=== PATIENT | female | born 1950 | race Caucasian/White ===

== ENCOUNTER → 2020-07-21 07:51 | Outpatient (REF) | payer MEDICARE, SELFPAY ==
--- NOTE | 2020-07-21 | CA_ITS ---
Acquisition Time: 2020-07-21 08:12:11 Total Exercise Time: 00:06:00 Test Indications: Dyspnea Medications: LOSARTAN Protocol: ARAM Max HR: 141 BPM 94% of Pred: 150 BPM Max BP: 144/086 mmHG Max Work Load: 7.0 METS PT EXERCISED ON STD ARAM PROTOCOL FOR 6 MIN THRU SYTAGE 2. MAX HR 141-94%MAX. SOME SOB. NO CP. OCC PVC'S. NML BP RESPONSE, NO ISCHEMIC CHANGES ON EKG. CLINICALLY AND ELEC NEG. Referred By: Rogelio Hancock Overread By: ARTUR HANCOCK MD
[2020-07-21 09:41] LABS: MANUAL DIFF FLAG NO
[2020-07-21 09:53] LABS: Basophils Absolute Auto 0.1 X10*3/uL (0.0-0.2); Basophils Percent Auto 1.1 % (0-2); Eosinophils Absolute Auto 0.6 X10*3/uL (0.0-0.4); Eosinophils Percent Auto 8.8 % (0-4); Hematocrit 45.7 % (37-47); Hemoglobin 15.3 g/dl (12.0-16.0); Imm Gran Abs Auto 0.01 X10*3/uL (0.00-0.03); Imm Gran Pct Auto 0.2 % (0.0-0.4); Lymphocytes Absolute Auto 2.1 X10*3/uL (1.2-4.9); Lymphocytes Percent Auto 32.2 % (20-40); Mean Corpuscular HGB Conc 33.5 g/dl (31.0-35.0); Mean Corpuscular Hemoglobin 31.5 pg (27.0-33.0); Mean Corpuscular Volume 94.2 fL (80-98); Mean Platelet Volume 9.7 fL (9.4-12.3); Monocytes Absolute Auto 0.6 X10*3/uL (0.1-1.2); Monocytes Percent Auto 9.8 % (2-11); Neutrophils Absolute Auto 3.1 X10*3/uL (2.0-8.3); Neutrophils Percent Auto 47.9 % (45-73); Platelet Count 278 X10*3/uL (160-400); Red Blood Count 4.85 X10*6/uL (4.20-5.50); Red Cell Distribution Width 12.8 % (11.0-16.0); White Blood Count 6.5 X10*3/uL (4.8-10.8)
[2020-07-21 10:16] LABS: Glucose Urine UA NEG (NEG); Leukocyte Esterase Urine 1+ (NEG); Nitrite Urine NEG (NEG); PH 5.5 (5.0-8.0); Specific Gravity - Urine >= 1.030 (1.005-1.025); Urine Blood TRACE (NEG); Urine Ketones NEG (NEG); Urine Protein NEG (NEG-TRACE)
[2020-07-21 10:19] LABS: Alanine Aminotransferase 13 U/L (0-31); Albumin Level 4.2 g/dL (3.5-5.0); Alkaline Phosphatase 81 U/L (39-117); Anion Gap 14 (12-20); Aspartate Amino Transferase 16 U/L (5-31); Bilirubin Total 0.6 mg/dL (0.0-1.0); Blood Urea Nitrogen 16 mg/dL (9-16); Carbon Dioxide 25 mmol/L (22-29); Chloride 107 mmol/L (96-108); Cholesterol 244 mg/dL; Estimated Glomerular Filt Rate > 60; Glucose Fasting 94 mg/dL (60-99); HDL Cholesterol 57 mg/dL; LDL Cholesterol Calculated 164 mg/dl; Potassium 4.6 mmol/l (3.3-5.1); Sodium 141 mmol/L (135-145); Total Protein 6.6 g/dL (6.5-8.0); Triglycerides 115 mg/dL
[2020-07-21 10:27] LABS: Appearance Urine HAZY; Color Urine YELLOW
[2020-07-21 10:38] LABS: Vitamin D 25-OH Total 22.1 ng/mL (>30)
[2020-07-21 11:17] LABS: Bacteria Urine TRACE /LPF; RBC Urine 0-2 /HPF (0); Squamous Epithelial Cell Urine 2+ /LPF; WBC Clumps Urine NOTED
== END ==
LOC: HO.CARD 07:51
PROVIDERS: PCP Internal Medicine; Visit Provider Internal Medicine
DX: R06.09 Other forms of dyspnea (principal)
CPT/HCPCS: 36415; 80053; 80061; 81001; 81003; 82306; 85025; 93017

== ENCOUNTER → 2020-07-24 14:00 | Outpatient (REF) | payer MEDICARE, SELFPAY ==
--- NOTE | 2020-07-24 14:10 | CA_ITS ---
Transthoracic Echocardiogram Patient (Last, First, Middle): Verónica Salinas L Gender: Female Date of : 1950 Age: 70 Procedure Date: 07/24/2020 Procedure Type: Transthoracic Echocardiogram Location: OP Height: 165.1 cm Weight: 68.95 kg BSA: 1.76 m2 Heart Rate: bpm BP: 111 / 78 mmHg Security Guard Dispatcher: ELLI Referring MD: Rogelio Garcia MD Weaver Apprentice: Rishi Ravi MD Symptoms: R06.09 OTHER FORMS OF DYSPNEA I49.3 VENTRICULAR PREMATURE DE Study Quality: Fair ECG Rhythm: Sinus Conclusions: - 1. Normal LV systolic function with impaired relaxation filling pattern 2. Normal cardiac valvular Doppler 3. Normal RV systolic pressure 4. No pericardial effusion Findings Left Ventricle Normal left ventricular size, thickness, and systolic function. The visually estimated ejection fraction is between 60-65%. Spectral Doppler is indicative of an impaired relaxation filling pattern. Right Ventricle Normal right ventricular cavity size and systolic function. Atria Both atria are normal in size. There is no evidence of interatrial shunt. Aortic Valve There is mild calcification of the aortic valve. There is no aortic valve stenosis. There is no aortic valve regurgitation. Mitral Valve Likely normal mitral valve structure and function. There is trace mitral valve regurgitation. There is no mitral valve stenosis. Pulmonic Valve The pulmonic valve was not well visualized. Tricuspid Valve Normal tricuspid valve structure. There is trace tricuspid valve regurgitation. The right ventricular systolic pressure is 15 mmHg. Normal right atrial pressure. There is no evidence of pulmonary hypertension. Great Vessels All visible segments of the aorta are normal in size. The pulmonary artery was not well visualized. Venous The inferior vena cava is normal in size and collapses greater than 50% with inspiration. Pericardium/Pleural There is no evidence of pericardial effusion. Prior Study Comparison No prior study available for comparison. Measurements 2D Linear Measurements IVSd: 0.97 0.6-0.9/0.6-1.0 cm LVIDd: 3.47 3.9-5.3/4.2-5.9 cm LVIDd Index: 1.97 2.4-3.2/2.2-3.1 cm/m2 LVIDs: 2.37 2.0-3.6 cm LVPWd: 1.03 0.7-1.1 cm Ao Root: 3.20 2.1-3.5 cm LA Diam: 3.20 2.7-3.8/3.0-4.0 cm LAIDs Index: 1.82 1.5-2.3 cm/m2 LV Mass: 126.95 67-162/88-224 g LV Mass Index: 72.13 43-95/49-115 g/m2 LVOT Diam: 2.20 3.0+(-)1.3 cm 2D Systolic Function EF 4C: 74.90 >55% Mitral Valve MV Pk E: 0.83 MV PK A: 0.98 MV Decel Time: 239.00 E/A: 0.80 E'Lateral: 8.41 E'Medial: 6.38 E/E' Med: 13.00 E/E' Lat: 9.90 PHT: 70.00 MVA PHT: 3.14 Decel Randolph: 3.46 Aortic Valve AoV Pk Ok: 1.19 AoV Pk Grad: 6.00 LVOT LVOT Pk Ok: 1.13 LVOT Mn Ok: 0.73 LVOT VTI: 0.22 LVOT Pk Grad: 5.00 LVOT Mn Grad: 3.00 LVOT Diam: 2.20 LVOT Area: 3.80 Diastolic Function MV Pk E: 0.83 MV Pk A: 0.98 E/A: 0.80 E'Medial: 6.38 E/E' Med: 13.00 E' Laterial: 8.41 E/E' Lat: 9.90 Tricuspid Valve TR Pk Ok: 1.75 TR Pk Grad: 12.00 RA Press: 3.00 RVSP: 15.00 Great Vessels Aorta Ao Root-2D: 3.20 2.0-3.7 cm Ao Asc: 3.10 2.1-3.4 cm Ao Arch: 2.30 Updated in Other Vendor System with Status of Final Rishi Ravi MD electronically signed on 07/25/2020 9:50:08 AM with status of Final
== END ==
LOC: HO.CARD 14:00
PROVIDERS: PCP Internal Medicine; Visit Provider Internal Medicine
DX: R06.09 Other forms of dyspnea (principal); I49.3 Ventricular premature depolarization
CPT/HCPCS: 93306

== ENCOUNTER 2020-08-28 11:42 | Outpatient (REF) | payer MEDICARE, SELFPAY ==
--- NOTE | 2020-08-28 | MM_ITS ---
EXAMINATION: MM SCREENING DIGITAL BREAST TOMOSYNTHESIS, BILATERAL CLINICAL INFORMATION: Screening. Asymptomatic. The lifetime risk of breast cancer based on the Tyrer-Cuzick Model is 5.1%. COMPARISON: Mammography: March 03, 2018 and studies dating back to June 09, 2012 TECHNIQUE: Digital breast tomosynthesis is performed in both the craniocaudal and mediolateral oblique views along with computer-aided detection (CAD). Synthesized 2D images are generated from the tomosynthesis. FINDINGS: The breasts are heterogeneously dense, which may obscure small masses (ACR BI-RADS breast composition Category c). Within the superior lateral aspect of the left breast approximately is a circumscribed density without spiculation measuring approximately 6 mm in diameter which spot compression view and ultrasound is recommended. There is also noted to be a density within the superior aspect of the left breast which appears to be stable and may represent a skin lesion. This appears to be along the medial aspect of the breast. No suspicious right breast findings identified. MM/MM tomosynthesis screening BI IMPRESSION: Circumscribed density upper outer aspect of the left breast for further evaluation as described. ASSESSMENT: BI-RADS 0: Incomplete - Need Additional Imaging Evaluation RECOMMENDATION: 1. Additional views of the left breast 2. Targeted ultrasound if warranted after review of the additional views. 3. Radiology department staff will contact the patient for additional imaging. This patient's information was entered into a reminder system with a target due date for their next mammogram.
== END 2020-08-28 11:43 | disposition home or self-care (01) ==
LOC: HO.MAMMO 11:42
PROVIDERS: Visit Provider Internal Medicine
DX: Z12.31 Encounter for screening mammogram for malignant neoplasm of breast (principal)
CPT/HCPCS: 77063; 77067

== ENCOUNTER 2020-09-25 08:56 | Outpatient (REF) | payer MEDICARE, SELFPAY ==
--- NOTE | 2020-09-25 | MM_ITS ---
EXAMINATION: MM DIAGNOSTIC DIGITAL BREAST TOMOSYNTHESIS, LEFT US DIAGNOSTIC ULTRASOUND BREAST, LEFT CLINICAL INFORMATION: Recall from screening for new nodule mid 3:00 left breast under 1 cm. COMPARISON: Mammography: 08/28/2020, 03/03/2018 TECHNIQUE: Digital breast tomosynthesis is performed. 2D images are generated from the tomosynthesis. The following views are obtained: Spot CC, spot MLO. Ultrasound left breast is targeted to the outer quadrant. Grayscale imaging and color Doppler are performed without and with harmonics. FINDINGS: The breasts are heterogeneously dense, which may obscure small masses (ACR BI-RADS breast composition Category c). Breast tissue composition borders on average fibroglandular. The additional views confirm a circumscribed nodule at the area of interest. No spiculation or irregular margin. Ultrasound left breast demonstrates a simple cyst 2:30 position 4 cm from nipple measuring 6 0.7 x 0.4 cm. This corresponds to the finding on mammography. Results are discussed with the patient at time of visit. MM/MM tomosynthesis diagnostic LT IMPRESSION: Simple cyst upper outer left breast corresponding to finding on recent screening mammography measuring 0.7 cm. ASSESSMENT: BI-RADS 2: Benign RECOMMENDATION: Routine annual mammography screening. This patient's information was entered into a reminder system with a target due date for their next mammogram.
== END 2020-09-25 08:57 | disposition home or self-care (01) ==
LOC: HO.MAMMO 08:56
PROVIDERS: PCP Internal Medicine; Visit Provider Internal Medicine
DX: N63.21 Unspecified lump in the left breast, upper outer quadrant (principal)
CPT/HCPCS: 76642; 77061; 77065

== ENCOUNTER 2021-10-14 11:42 | Outpatient (REF) | payer MEDICARE, SELFPAY ==
--- NOTE | ~2021-10-14 | MM_ITS ---
EXAMINATION: MM SCREENING DIGITAL BREAST TOMOSYNTHESIS, BILATERAL CLINICAL INFORMATION: Screening. Asymptomatic. The lifetime risk of breast cancer based on the Tyrer-Cuzick Model is 4%. COMPARISON: Mammography: 09/25/2020, 08/28/2020, 03/03/2018, 12/24/2016; targeted left breast ultrasound 09/25/2020 TECHNIQUE: Digital breast tomosynthesis is performed in both the craniocaudal and mediolateral oblique views along with computer-aided detection (CAD). Synthesized 2D images are generated from the tomosynthesis. FINDINGS: There are scattered areas of fibroglandular density (ACR BI-RADS breast composition Category b). There are no significant masses, abnormal calcifications, or other abnormalities. Nodule mid outer left breast has substantially decreased since prior imaging 2019. No interval mass or architectural abnormality. MM/MM tomosynthesis screening BI IMPRESSION: No mammographic evidence of malignancy. ASSESSMENT: BI-RADS 2: Benign RECOMMENDATION: Routine annual mammography screening. This patient's information was entered into a reminder system with a target due date for their next mammogram.
== END 2021-10-14 11:43 | disposition home or self-care (01) ==
LOC: HO.MAMMO 11:42
PROVIDERS: Visit Provider Internal Medicine
DX: Z12.31 Encounter for screening mammogram for malignant neoplasm of breast (principal)
CPT/HCPCS: 77063; 77067

== ENCOUNTER 2022-02-01 08:47 | Outpatient (REF) | payer MEDICARE, SELFPAY ==
[2022-02-01 10:30] LABS: MANUAL DIFF FLAG NO
[2022-02-01 10:33] LABS: Basophils Absolute Auto 0.1 X10*3/uL (0.0-0.2); Basophils Percent Auto 0.8 % (0-2); Eosinophils Absolute Auto 0.5 X10*3/uL (0.0-0.4); Eosinophils Percent Auto 7.6 % (0-4); Hematocrit 44.9 % (37.0-47.0); Hemoglobin 14.9 g/dl (12.0-16.0); Imm Gran Abs Auto 0.01 X10*3/uL (0.00-0.03); Imm Gran Pct Auto 0.2 % (0.0-0.4); Lymphocytes Absolute Auto 2.3 X10*3/uL (1.2-4.9); Lymphocytes Percent Auto 37.2 % (20-40); Mean Corpuscular HGB Conc 33.2 g/dl (31.0-35.0); Mean Corpuscular Hemoglobin 30.9 pg (27.0-33.0); Mean Corpuscular Volume 93.2 fL (80.0-98.0); Mean Platelet Volume 9.7 fL (9.4-12.3); Monocytes Absolute Auto 0.6 X10*3/uL (0.1-1.2); Monocytes Percent Auto 9.7 % (2-11); Neutrophils Absolute Auto 2.8 x10*3/uL (2.0-8.3); Neutrophils Percent Auto 44.5 % (45-73); Platelet Count 254 X10*3/uL (160-400); Red Blood Count 4.82 X10*6/uL (4.20-5.50); Red Cell Distribution Width 13.2 % (11.0-16.0); White Blood Count 6.2 X10*3/uL (4.8-10.8)
[2022-02-01 11:04] LABS: Alanine Aminotransferase 24 U/L (0-31); Albumin Level 3.8 g/dL (3.5-5.0); Alkaline Phosphatase 79 U/L (39-117); Anion Gap 13 (12-20); Aspartate Amino Transferase 22 U/L (5-31); Bilirubin Total 0.9 mg/dL (0.0-1.0); Blood Urea Nitrogen 14 mg/dL (9-16); Calcium 9.3 mg/dL (8.4-10.2); Carbon Dioxide 23 mmol/L (22-29); Chloride 109 mmol/L (96-108); Cholesterol 215 mg/dL; Estimated Glomerular Filt Rate > 60; Glucose Fasting 89 mg/dL (60-99); HDL Cholesterol 54 mg/dL; LDL Cholesterol Calculated 136 mg/dl; Potassium 4.4 mmol/L (3.3-5.1); Sodium 141 mmol/L (135-145); Total Protein 6.5 g/dL (6.5-8.0); Triglycerides 125 mg/dL
== END 2022-02-01 08:48 | disposition home or self-care (01) ==
LOC: HO.10HDL 08:47
PROVIDERS: Visit Provider Internal Medicine
DX: I10 Essential (primary) hypertension (principal); E78.00 Pure hypercholesterolemia, unspecified; M81.0 Age-related osteoporosis without current pathological fracture
CPT/HCPCS: 36415; 80053; 80061; 82306; 85025

== ENCOUNTER 2023-07-07 08:29 | Outpatient (REF) | payer MEDICARE, SELFPAY ==
[2023-07-07 10:42] LABS: MANUAL DIFF FLAG NO
[2023-07-07 10:55] LABS: Basophils Absolute Auto 0.1 X10*3/uL (0.0-0.2); Eosinophils Absolute Auto 0.7 X10*3/uL (0.0-0.4); Eosinophils Percent Auto 9.9 % (0-4); Hematocrit 44.4 % (37.0-47.0); Hemoglobin 14.9 g/dl (12.0-16.0); Imm Gran Abs Auto 0.01 X10*3/uL (0.00-0.03); Imm Gran Pct Auto 0.1 % (0.0-0.4); Lymphocytes Absolute Auto 2.6 X10*3/uL (1.2-4.9); Lymphocytes Percent Auto 36.7 % (20-40); Mean Corpuscular HGB Conc 33.6 g/dl (31.0-35.0); Mean Corpuscular Hemoglobin 30.7 pg (27.0-33.0); Mean Corpuscular Volume 91.4 fL (80.0-98.0); Mean Platelet Volume 9.6 fL (9.4-12.3); Monocytes Absolute Auto 0.7 X10*3/uL (0.1-1.2); Monocytes Percent Auto 10.3 % (2-11); Platelet Count 275 X10*3/uL (160-400); Red Blood Count 4.86 X10*6/uL (4.20-5.50); Red Cell Distribution Width 12.9 % (11.0-16.0); White Blood Count 7.2 X10*3/uL (4.8-10.8)
[2023-07-07 11:22] LABS: Alanine Aminotransferase 12 U/L (0-31); Albumin Level 3.9 g/dL (3.5-5.0); Alkaline Phosphatase 77 U/L (39-117); Anion Gap 13 (12-20); Aspartate Amino Transferase 17 U/L (5-31); Bilirubin Total 0.6 mg/dL (0.0-1.0); Blood Urea Nitrogen 14 mg/dL (9-16); Calcium 9.7 mg/dL (8.4-10.2); Carbon Dioxide 24 mmol/L (22-29); Chloride 109 mmol/L (96-108); Cholesterol 198 mg/dL (<200); Estimated Glomerular Filt Rate > 60; Glucose Random 91 mg/dL (60-115); HDL Cholesterol 56 mg/dL (>40); LDL Cholesterol Calculated 119 mg/dL (<100); Sodium 142 mmol/L (135-145); Total Protein 6.8 g/dL (6.5-8.0); Triglycerides 115 mg/dL (<150)
[2023-07-07 11:31] LABS: Vitamin D 25-OH Total 47.6 ng/mL (>30)
== END 2023-07-07 08:30 | disposition home or self-care (01) ==
LOC: HO.10HDL 08:29
PROVIDERS: Visit Provider Internal Medicine
DX: I10 Essential (primary) hypertension (principal); E78.00 Pure hypercholesterolemia, unspecified; M81.0 Age-related osteoporosis without current pathological fracture
CPT/HCPCS: 36415; 80053; 80061; 82306; 85025

== ENCOUNTER 2023-07-20 12:32 | Outpatient (REF) | payer MEDICARE, SELFPAY ==
--- NOTE | ~2023-07-20 | MM_ITS ---
EXAMINATION: BONE DENSITOMETRY CLINICAL INDICATION: Menopausal state. COMPARISON: Previous BD dated 06/09/2012 and baseline BD dated 06/17/2008. TECHNIQUE: Using a [employer] DXA System (software version: 13.1) manufactured by [employer], dual-energy x-ray absorptiometry was performed of the lumbar spine and left hip. The images are of good technical quality. Summary results are attached. FINDINGS: LEFT FEMUR, NECK: Current: BMD 0.644 g/cm2, Z-score -1.1, T-score -2.8, osteoporosis. Prior: BMD 0.677 g/cm2. Baseline: BMD 0.691 g/cm2. LEFT FEMUR, TOTAL: Current: BMD 0.753 g/cm2, Z-score -0.5, T-score -2.0, osteopenia, 1.6% increase from previous, 3.8% decrease from baseline (<5% change is not significant). Prior: BMD 0.765 g/cm2. Baseline: BMD 0.783 g/cm2. AP SPINE L1-L4: Current: BMD 0.836 g/cm2, Z-score -1.3, T-score -2.9, osteoporosis, 0.5% decrease from previous, 6.9% increase from baseline (<5% change is not significant). Prior: BMD 0.840 g/cm2. Baseline: BMD 0.782 g/cm2. IDENTIFIED RISK FACTORS: Osteoporosis, menopause. HISTORY OF FRACTURE: None listed. MEDICATIONS: Vitamin D. MM/XR DEXA axial skeleton IMPRESSION: 1. DIAGNOSIS: Osteoporosis based on the lowest T-score value of -2.9 in the lumbar spine applying World Health Organization criteria. 2. 10-YEAR FRACTURE RISK PREDICTION, FRAX: According to the guidelines, FRAX calculation should only be performed on patients in the osteopenia bone density category. Therefore, FRAX was not performed on this patient. 3. Treatment Recommendations: NOF guidelines recommend consideration for treatment in postmenopausal women and men age 50 and older presenting with the following: -A hip or vertebral (clinical or morphometric) fracture. -T-score less than or equal to -2.5 at the femoral neck or spine after appropriate evaluation to exclude secondary causes. -Low bone mass at the hip or spine and a 10-year fracture probability by FRAX of greater than or equal to 3% for hip fracture or greater than or equal to 20% for major osteoporotic fracture based on the [place] adapted WHO algorithm. 4. Other Recommendations: All treatment decisions require clinical judgment and consideration of individual patient factors, including patient preferences, comorbidities, previous drug use, risk factors not captured in the FRAX model (e.g. frailty, falls, vitamin D deficiency, increased bone turnover, interval significant decline in bone density) and possible under or overestimation of fracture risk by FRAX. Additional medical evaluation for secondary cause of low bone mineral density may be appropriate. FUTURE SCAN RECOMMENDATION: People with diagnosed cases of osteoporosis or at high risk for fracture should have regular bone mineral density tests. For patients eligible for Medicare, routine testing is allowed once every 2 years. The testing frequency can be increased to one year for patients who have rapidly progressing disease, those who are receiving or discontinuing medical therapy to restore bone mass, or have additional risk factors.
== END 2023-07-20 12:33 | disposition home or self-care (01) ==
LOC: HO.MAMMO 12:32
PROVIDERS: PCP Internal Medicine; Visit Provider Internal Medicine
DX: Z12.31 Encounter for screening mammogram for malignant neoplasm of breast (principal); Z13.820 Encounter for screening for osteoporosis; Z78.0 Asymptomatic menopausal state
CPT/HCPCS: 77063; 77067; 77080

== ENCOUNTER → 2023-07-20 13:00 | Outpatient (BNV) | payer MEDICARE, SELFPAY | PROVIDERS: PCP Internal Medicine; Visit Provider Radiology Diagnostic Radiology | DX: Z12.31 Encounter for screening mammogram for malignant neoplasm of breast (principal) | CPT/HCPCS: 77063; 77067 ==

== ENCOUNTER 2023-12-20 07:00 | Day surgery (SDC) | payer MEDICARE, SELFPAY ==
[2023-12-16 10:50] VITALS: BMI 26.5
--- NOTE | 2023-12-19 09:00 | P.CONAN_ITS ---
Documented by User: Emily Vigil NP 12/19/23 09:00 HPI - Anesthesia Eval Consult details Narrative: 73yo F for Colonoscopy FOR[facility]LY [facility], [facility] Past Medical History Medical History (Updated 12/16/23 @ 10:50 by Kate Llanes RN) Elevated cholesterol HTN (hypertension) Surgical History Surgical History (Updated 12/16/23 @ 10:50 by Kate Llanes RN) Hx of shoulder surgery Hx of tubal ligation H/O colonoscopy Social History Social History (Updated 12/16/23 @ 10:50 by Kate Llanes RN) Household Members: Spouse Patient Tobacco Use Status: Former Tobacco user Are you DNR?: No Advance Directives: No Advance Directives Information Provided: Yes Nutrition Risks: No Nutritional Risk Meds Allergies Allergy/AdvReac Type Severity Reaction Status Date / Time Umpzpse-EIN-RhR Reductase Allergy Intermediate Muscle Verified 12/20/23 07:27 Inhibitor cramps sulfamethoxazole Allergy Intermediate Hives Verified 12/20/23 07:27 [From Bactrim] trimethoprim [From Bactrim] Allergy Intermediate Hives Verified 12/20/23 07:27 Home Medications Medication Instructions Recorded Confirmed Last Taken Type cetirizine 10 mg tablet (Zyrtec) 10 mg PO DAILY 12/16/23 12/16/23 12/19/23 History ezetimibe 10 mg tablet 10 mg PO DAILY 12/16/23 12/16/23 12/19/23 History losartan 25 mg tablet 25 mg PO DAILY 12/16/23 12/16/23 12/20/23 History Exam Height,Weight and Vital Signs: Height 5 ft 3.5 in Weight 68.946 kg Assessment and Plan Assessment Anesthesia Assessment: Chart Reviewed Documented by User: Cornel Reynolds MD 12/20/23 07:31 [facility], [facility] Past Medical History Medical History (Updated 12/16/23 @ 10:50 by Kate Llanes RN) Elevated cholesterol HTN (hypertension) Family History Family history of problems with anesthesia: No Surgical History Surgical History (Updated 12/16/23 @ 10:50 by Kate Llanes RN) Hx of shoulder surgery Hx of tubal ligation H/O colonoscopy History of Problems with Anesthesia: No Social History Social History (Updated 12/16/23 @ 10:50 by Kate Llanes RN) Household Members: Spouse Patient Tobacco Use Status: Former Tobacco user Are you DNR?: No Advance Directives: No Advance Directives Information Provided: Yes Nutrition Risks: No Nutritional Risk Meds Allergies Allergy/AdvReac Type Severity Reaction Status Date / Time Pysnfzw-OWL-KtJ Reductase Allergy Intermediate Muscle Verified 12/20/23 07:27 Inhibitor cramps sulfamethoxazole Allergy Intermediate Hives Verified 12/20/23 07:27 [From Bactrim] trimethoprim [From Bactrim] Allergy Intermediate Hives Verified 12/20/23 07:27 Home Medications Medication Instructions Recorded Confirmed Last Taken Type cetirizine 10 mg tablet (Zyrtec) 10 mg PO DAILY 12/16/23 12/16/23 12/19/23 History ezetimibe 10 mg tablet 10 mg PO DAILY 12/16/23 12/16/23 12/19/23 History losartan 25 mg tablet 25 mg PO DAILY 12/16/23 12/16/23 12/20/23 History Exam Airway Mallampati Class: II TM Dist: >3cm Neck ROM: Full Loose/Missing/Broken Teeth: No Heart: rrr Lungs: cta b/l Assessment and Plan Final Anesthetic Review Family History of Problems with Anesthesia: No History of Problems with Anesthesia: No NPO: Yes ASA Class: II Final Preanesthetic Review: No Changes in Pt Med Stat, Meds/Allgs Chart Reviewed, Consent Obtained/Reviewed and Anes Risks/Benef Reviewed Patient Risk: Intermediate Procedure Risk: Intermediate Anesthetic Plan Anesthetic Plan: MAC: Disposition: Standard PACU
[2023-12-20 07:10] VITALS: BP 137/91; PULSE 86; RESP 18; TEMP 36.1; O2SAT 97; BMI 25.8
[2023-12-20] MEDS: Lactated Ringers 1,000 ML 100 ML IVCONT (07:25)
--- NOTE | 2023-12-20 08:07 | P.HPSUR_ITS ---
Pre-Procedural Eval Section A - 24 Hr Update-Section A only Date of Service: 12/20/23 Section B - Complete if H&P > 30 days Chief Complaint: Encounter for screening for malignant neoplasm of Details of Present Illness: see H&P Relevant Family History (Specify if Yes): No Relevant Social History: None Present Medications: see Short Stay Collaborative assessment Medical History: No relevant PMH History of Previous Operations: No relevant previous surgery Allergies: Allergies Allergy/AdvReac Type Severity Reaction Status Date / Time Bbzabgp-MMK-YyG Reductase Allergy Intermediate Muscle Verified 12/20/23 07:27 Inhibitor cramps sulfamethoxazole Allergy Intermediate Hives Verified 12/20/23 07:27 [From Bactrim] trimethoprim [From Bactrim] Allergy Intermediate Hives Verified 12/20/23 07:27 Review of Systems Sugical H&P ROS: Negative: Constitution, Cardiovascular, Respiratory, Neurological, Psychiatric, Hem-Onc, Allergic/Immunologic, Gastrointestinal, Genitourinary, Musculoskeletal, Integumentary, Endocrine and Eyes /Ears/Nose/Throat Exam Surgical H&P Exam: Normal: HEENT, Normal: Heart, Normal: Lungs, Normal: Extremities, Normal: Abdomen, Normal: Skin and Normal: Neurological Plan Diagnosis/Plan: Unchanged I have reviewed the history and physical and performed a pertinent physical examination on my patient. No changes have occurred unless specified. Time Spent With Patient Time: Total time managing care of this patient today ____ minutes.
[2023-12-20 08:45] VITALS: BP 104/53; PULSE 81; RESP 16; TEMP 36.1; O2SAT 99
[2023-12-20 08:50] VITALS: BP 109/54; PULSE 83; RESP 18; O2SAT 97
[2023-12-20 08:55] VITALS: BP 118/78; PULSE 79; RESP 18; O2SAT 97
[2023-12-20 09:00] VITALS: BP 126/64; PULSE 74; RESP 18; O2SAT 97
[2023-12-20 09:04] VITALS: BP 117/67; PULSE 80; RESP 18; TEMP 36.4; O2SAT 98
--- NOTE | 2023-12-20 10:57 | OP_ITS ---
DATE OF SERVICE: 12/20/2023 SURGEON: Chapo Mir MD INDICATIONS: Colon cancer screening. PREOPERATIVE DIAGNOSIS: POSTOPERATIVE DIAGNOSIS: PROCEDURE PERFORMED: Colonoscopy to the terminal ileum. ESTIMATED BLOOD LOSS: COMPLICATIONS: ANESTHESIA: Monitored anesthesia care. ASSISTANTS: SPECIMENS: DESCRIPTION OF PROCEDURE: A history and physical was performed. The risks and benefits of the procedure were explained to the patient. Informed consent was obtained. The patient was placed in the left lateral decubitus position. A digital rectal exam was performed and was found to be normal. The Olympus pediatric video colonoscope was introduced into the rectum and advanced to the cecum. The cecum was identified by transillumination, palpation, and identification of the ileocecal valve. Examination was performed. The scope was removed. She tolerated the procedure well and was returned to the recovery area in stable condition. FINDINGS: The terminal ileum was examined and appeared normal. The visualized colonic mucosa was within normal limits without evidence of masses or ulcers. No polyps were identified. The quality of the prep was good. Retroflexed examination showed small internal hemorrhoids. There was mild sigmoid diverticulosis. IMPRESSION: Normal colonoscopy. RECOMMENDATIONS: 1. Follow up as needed. 2. Repeat colonoscopy is recommended in 10 years for average risk individuals. Screening is optional after age 75. MD ABENA Arroyo/QUENTINL / [phone]
== END 2023-12-20 09:16 | disposition home or self-care (01) ==
PROVIDERS: PCP Internal Medicine; Visit Provider Internal Medicine Gastroenterology
PROC: 0DJD8ZZ Inspection of Lower Intestinal Tract, Via Natural or Artificial Opening Endoscopic (ICD-10-PCS; CPT 45378; principal; 2023-12-20 08:40)
DX: Z12.11 Encounter for screening for malignant neoplasm of colon (principal); Z80.0 Family history of malignant neoplasm of digestive organs; K57.30 Diverticulosis of large intestine without perforation or abscess without bleeding; K64.8 Other hemorrhoids; I10 Essential (primary) hypertension; E78.00 Pure hypercholesterolemia, unspecified; Z79.899 Other long term (current) drug therapy
CPT/HCPCS: G0105; J2704

== ENCOUNTER 2024-05-11 09:59 | Outpatient (AMB) | payer MEDICARE, SELFPAY ==
--- NOTE | 2024-05-11 10:18 | AM.OFFWIN_ITS ---
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 Patient Tobacco Use Status: Former Tobacco user Allergies Diobdon-IKI-PfC Reductase Inhibitor Allergy (Intermediate, Verified 05/11/24 10:20) Muscle cramps sulfamethoxazole [From Bactrim] Allergy (Intermediate, Verified 05/11/24 10:20) Hives trimethoprim [From Bactrim] Allergy (Intermediate, Verified 05/11/24 10:20) Hives Do you need a note to return to daycare/school/sports/work: No HPI HPI Comments History of Present Illness Details 74 y/o female patient who presents to [facility] walk in clinic with c/o dry itchy eyes. left eye worse than right eye. Reports feeling like there is Sand in her eyes. Denies Vision changes. Denies headaches, fevers, chills, nausea or vomiting. Denies any eye surgeries in the past. Denies any chronic eye diseases. H/o Seasonal allergies, and currently takes Zrytec. [facility] Medical History (Updated 12/16/23 @ 10:50 by Kate Llanes RN) Elevated cholesterol HTN (hypertension) Surgical History (Updated 12/16/23 @ 10:50 by Kate Llanes RN) Hx of shoulder surgery Hx of tubal ligation H/O colonoscopy Social History (Updated 12/16/23 @ 10:50 by Kate Llanes RN) Household Members: Spouse Patient Tobacco Use Status: Former Tobacco user Review of Systems Const All systems reviewed & are unremarkable except as noted in HPI and below Physical Exam Vital Signs: Last Vital Signs Pulse 71 05/11/24 10:19 BP 108/68 05/11/24 10:19 Pulse Ox 98 05/11/24 10:19 Oxygen Delivery Method Room Air 05/11/24 10:19 Const General: comfortable and no acute distress Orientation/consciousness: patient oriented x3 HEENT Head: Yes normocephalic Ears: external ears normal and TM abnormal with fluid behind the TM bilateral General nose exam: Abnormal mucous membranes and turbinates present boggy and erythematous Mouth: moist mucous membranes Eyes Eyelids: Yes eyelids normal Conjunctivae: conjunctivae normal Pupils: Equal, round and reactive pupils present EOM: EOMs intact bilaterally Direct Ophthalmoscopy: normal light reflex Resp Effort & Inspection: normal respiratory effort and able to speak in complete sentences Auscultation: clear to auscultation bilaterally, no crackles, no rales, no rhonchi and no wheezes Cardio Heart sounds: S1 normal heart sound present and S2 normal heart sound present Neuro General: patient oriented x3 Cranial nerves: Yes Equal, round and reactive pupils present Assessment & Plan Assessment & Plan (1) Viral conjunctivitis of left eye: Code(s): B30.9 - Viral conjunctivitis, unspecified Plan: Ordered zaditor Keep eyes clean and wash hands frequently. RTC if symptoms worse. Take Zrytec BID Medications: New ketotifen fumarate 0.025%(0.035%) (Zaditor) do not exceed 2 doses in a 24 hour period 1 drp ophthalmic (eye) Q8H 5 mL 0RF B30.9 - Viral conjunctivitis, unspecified Coding Level of Care Code Est Pt Level 3 (38070) Diagnoses Viral conjunctivitis of left eye B30.9 Time Spent (min) 15
[2024-05-11 10:19] VITALS: BP 108/68; PULSE 71; O2SAT 98
== END 2024-05-11 10:55 | disposition home or self-care (01) ==
PROVIDERS: PCP Internal Medicine; Visit Provider Nurse Practitioner Family
DX: B30.9 Viral conjunctivitis, unspecified (principal)
CPT/HCPCS: 99213

== ENCOUNTER 2024-07-25 12:32 | Outpatient (REF) | payer MEDICARE, SELFPAY ==
--- NOTE | ~2024-07-25 | MM_ITS ---
EXAMINATION: MM SCREENING DIGITAL BREAST TOMOSYNTHESIS, BILATERAL CLINICAL INFORMATION: Screening. Asymptomatic. COMPARISON: Mammography: Comparison is made with available priors TECHNIQUE: Digital breast mammography with tomosynthesis is performed in both the craniocaudal and mediolateral oblique views along with computer-aided detection (CAD). FINDINGS: The breasts are heterogeneously dense, which may obscure small masses (ACR BI-RADS breast composition Category c). There are no significant masses, abnormal calcifications, or other abnormalities. MM/MM tomosynthesis screening BI IMPRESSION: No mammographic evidence of malignancy. ASSESSMENT: BI-RADS BI-RADS 1 - Negative RECOMMENDATION: Routine annual mammography screening. 1 year F/U This examination should not preclude the clinical evaluation of a suspicious palpable abnormality. This patient's information was entered into a reminder system with a target due date for their next mammogram. Electronically signed by: Gabriella Cordova DO 08/03/2024 09:35 AM FLEX
== END 2024-07-25 12:33 | disposition home or self-care (01) ==
LOC: HO.MAMMO 12:32
PROVIDERS: PCP Internal Medicine; Visit Provider Internal Medicine
DX: Z12.31 Encounter for screening mammogram for malignant neoplasm of breast (principal)
CPT/HCPCS: 77063; 77067

== ENCOUNTER → 2024-07-25 12:45 | Outpatient (BNV) | payer MEDICARE, SELFPAY | PROVIDERS: PCP Internal Medicine; Visit Provider Internal Medicine | DX: Z12.31 Encounter for screening mammogram for malignant neoplasm of breast (principal) | CPT/HCPCS: 77063; 77067 ==

== ENCOUNTER 2024-09-27 08:06 | Outpatient (REF) | payer MEDICARE, SELFPAY ==
--- OUTSIDE RECORDS SUMMARY | 2024-09-27 08:10 | XMS_ITS | Patient Health Record ---
Author Organization [facility] Address [address] [place] [phone] Care Team Providers Care Pit Clerk Name Role Phone Rogelio Garcia MD Primary Care Provider Chapo Cox Jr Unavailable ALLERGIES Allergen (clinical drug ingredient) Drug/Non Drug Allergy documented on EMR Reaction Allergy Type Onset Date Status Sulfa Unknown Drug Allergy Active sulfamethoxazole / trimethoprim Bactrim Unknown Drug Allergy Active Substance with 5-htgdakw-5-methylglutaryl -coenzyme A reductase inhibitor mechanism of action (substance) statins (uncoded) Unknown Allergy Acti ve REASON FOR REFERRAL No Information MEDICATIONS Medication SIG (Take, Route, Frequency, Duration) Notes Start Date End Date Status Calcium + D 600mg Ac tive Ezetimibe 10 MG TAKE 1 TABLET BY JANIE TH EVERY DAY Oral for 90 Active ZyrTEC Allergy Activ e MiraLax (colon prep) 17 GM/SCOOP mixed with Gatorade or Crystal Light Orally begin at 5:00 p.m. the day before the procedure for 1 day 10/27/2023 Active Losartan Potassium 25 MG TAKE 1 TABLET B Y MOUTH EVERY DAY Oral for 90 Active SOCIAL HISTORY Sex Assigned At : Social History Observation Description Sex Assigned At Unknown PROBLEMS Problem Type ICD Code Onset Dates Problem Status W/U Status Risk SNOMED Code Notes Problem Colon cancer screening (Z12.11) Active confirmed 592003676 Problem FH: colon cancer (Z80.0) Active confirmed [id number] VITAL SIGNS Temperature 96.8 degrees Fahrenheit 10/27/2023 Blood pressure diastolic 000 mm Hg 10/27/2023 Height 63.5 in 10/27/2023 Blood pressure systolic 00 mm Hg 10/27/2023 Weight 152 lbs 10/27/2023 BMI 26.50 kg/m2 10/27/2023 Encounters Encounter Location Date Provider Diagnosis [facility] [address] [place], [place] [id number] 12/20/2023 Chapo Mir Jr Encounter for screening colonoscopy Z12.11 and Family history of colon cancer Z80.0 [facility] [address] [place] [address] 10/27/2023 Chapo Mir Jr Colon cancer screening Z12.11 and FH: colon cancer Z80.0 ASSESSMENTS Encounter Date Diagnosis Assessment Notes Treatment Notes Treatment Clinical Notes 12/20/2023 Encounter for screening colonoscopy (ICD-10 - Z12.11) 12/20/2023 Family history of colon cancer (ICD-10 - Z80.0) 10/27/2023 Colon cancer screening (ICD-10 - Z12.11) Colonoscopy material was printed 10/27/2023 FH: colon cancer (ICD-10 - Z80.0) PLAN OF TREATMENT Future Test Test Name Order Date COLONOSCOPY 06/23/2012 COLONOSCOPY 10/27/2023 Insurance Providers Payer Name Payer Address Payer Phone Subscriber Number Group Number Insured Name Patient Relationship to Insured Coverage Start Date Coverage End Date MEDICARE OF [place] [address] [place] [id number] KARENA TRUONG Self - patient is the insured MEDEX ATTN CLAIMS [address] [place] [phone] [id number] KARENA TRUONG Self - patient is the insured MEDICAL (GENERAL) HISTORY Medical History History ICD Code Hypertension Hyperlipidemia Colonoscopy 08/07, hyperplastic polyp, o ther nonspecific findings Surgical History Surgery Date(Month/Year) tubal ligation frozen shoulder left manipulation
--- OUTSIDE RECORDS SUMMARY | 2024-09-27 08:10 | XMS_ITS ---
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 Name Role Phone Rogelio Garcia MD Primary Care Provider Chapo Cox Jr Unavailable ALLERGIES Allergen (clinical drug ingredient) Drug/Non Drug Allergy documented on EMR Reaction Allergy Type Onset Date Status Sulfa Unknown Drug Allergy Active sulfamethoxazole / trimethoprim Bactrim Unknown Drug Allergy Active Substance with 0-pycboxw-1-methylglutaryl -coenzyme A reductase inhibitor mechanism of action (substance) statins (uncoded) Unknown Allergy Acti ve REASON FOR VISIT Patient presents today for a discuss colonoscopy MEDICATIONS Medication SIG (Take, Route, Frequency, Duration) [...] for 90 Active ZyrTEC Allergy Activ e SOCIAL HISTORY Tobacco Use: Social History Observation Description Date Details (start date - stop date) Never Smoker NA - NA Sex Assigned At : Social History Observation Description Sex Assigned At Unknown Tobacco Use/Smoking Question Answer Notes Patient is [...] to 3 times a week (3 points) PROBLEMS Problem Type ICD Code Onset Dates Problem Status W/U Status Risk SNOMED Code Notes Problem Colon cancer screening (Z12.11) Active confirmed 666390505 Problem FH: colon cancer (Z80.0) Active confirmed [id number] VITAL SIGNS BMI 26.50 kg/m2 10/27/2023 Blood pressure systolic 00 mm Hg 10/27/19 24 Blood pressure diastolic 000 mm Hg 024 Height 63.5 in 10/27/2023 Temperature 96.8 degrees Fahrenheit 10/27/19 24 Weight 152 lbs 10/27/2023 Encounters Encounter Location Date Provider Diagnosis [facility] [address] [place] [address] 10/27/2023 Chapo Mir Jr Colon cancer screening Z12.11 and FH: colon cancer Z80.0 ASSESSMENTS Encounter Date Diagnosis Assessment Notes Treatment Notes Treatment Clinical Notes 10/27/2023 Colon cancer screening (ICD-10 - Z12.11) Colonoscopy material was printed 10/27/2023 FH: colon cancer (ICD-10 - Z80.0) PLAN OF TREATMENT Medication Medication Name Sig Start Date Stop [...] Follow Up: prn, Reason: Progress Notes * Examination Category Sub-Category Detail Notes General Examination GENERAL APPEARANCE: in no ac saba distress HEAD: normocephalic EYES: sclera non-icteric NECK/THYROID: no lymphadenopathy HEART: S1, S2 normal, no mu rmurs CHEST: normal shape and exp ansion LUNGS: clear to auscultatio n bilaterally ABDOMEN: soft, nontender, non distended, bowel sounds present, no organomegaly SKIN: anicteric EXTREMITIES: no clubbing, cyanosi s, or edema PSYCH: cognitive function i ntact ORAL CAVITY: mucosa moist
[2024-09-27 08:20] LABS: MANUAL DIFF FLAG NO
[2024-09-27 08:38] LABS: Basophils Absolute Auto 0.1 X10*3/uL (0.0-0.2); Basophils Percent Auto 0.8 % (0-2); Eosinophils Absolute Auto 0.5 X10*3/uL (0.0-0.4); Eosinophils Percent Auto 6.7 % (0-4); Hematocrit 44.5 % (37.0-47.0); Hemoglobin 15.1 g/dl (12.0-16.0); Imm Gran Abs Auto 0.02 X10*3/uL (0.00-0.03); Imm Gran Pct Auto 0.3 % (0.0-0.4); Lymphocytes Percent Auto 38.1 % (20-40); Mean Corpuscular HGB Conc 33.9 g/dl (31.0-35.0); Mean Corpuscular Hemoglobin 31.3 pg (27.0-33.0); Mean Corpuscular Volume 92.1 fL (80.0-98.0); Mean Platelet Volume 9.3 fL (9.4-12.3); Monocytes Absolute Auto 0.7 X10*3/uL (0.1-1.2); Monocytes Percent Auto 9.2 % (2-11); Neutrophils Absolute Auto 3.6 x10*3/uL (2.0-8.3); Neutrophils Percent Auto 44.9 % (45-73); Platelet Count 268 X10*3/uL (160-400); Red Blood Count 4.83 X10*6/uL (4.20-5.50); Red Cell Distribution Width 12.8 % (11.0-16.0); White Blood Count 7.9 X10*3/uL (4.8-10.8)
[2024-09-27 09:01] LABS: Anion Gap 11 (12-20); Blood Urea Nitrogen 16 mg/dL (9-16); C Reactive Protein 0.25 mg/dL (< or = 0.50); Calcium 9.3 mg/dL (8.4-10.2); Carbon Dioxide 27 mmol/L (22-29); Chloride 108 mmol/L (96-108); Estimated Glomerular Filt Rate > 60; Glucose Random 101 mg/dL (60-115); Potassium 4.1 mmol/L (3.3-5.1); Sodium 142 mmol/L (135-145); Uric Acid 5.6 mg/dL (2.4-5.7)
[2024-09-27 09:17] LABS: Erythrocyte Sedimentation Rate 6 MM/HR (0-20)
== END 2024-09-27 08:07 | disposition home or self-care (01) ==
LOC: HO.LAB 08:06
PROVIDERS: PCP Internal Medicine; Visit Provider Internal Medicine
DX: M25.531 Pain in right wrist (principal)
CPT/HCPCS: 36415; 80048; 84550; 85025; 85652; 86140

== ENCOUNTER 2024-12-17 10:02 | Outpatient (AMB) | payer MEDICARE, SELFPAY ==
--- NOTE | 2024-12-17 10:07 | MHC.PC.OV ---
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: No Accompanied by: Self / Same As Patient Allergies Rrlamof-PKG-AnL Reductase Inhibitor Allergy (Intermediate, Verified 12/17/24 10:09) Muscle cramps sulfamethoxazole [From Bactrim] Allergy (Intermediate, Verified 12/17/24 10:09) Hives trimethoprim [From Bactrim] Allergy (Intermediate, Verified 12/17/24 10:09) Hives Tobacco use date assessed: 12/17/24 Fall risk assessment: No Falls in past year Last assessed Fall Risk: 12/17/24 Dental Screening Dental Screen Date: 12/17/24 Did you have a dental visit in the last 12 months?: Yes Did you have a dental problem in the last 6 months where you did not have access to dental care?: No PFSH Medical History Elevated cholesterol HTN (hypertension) Surgical History Hx of shoulder surgery Hx of tubal ligation H/O colonoscopy Family History (Updated 12/17/24 @ 10:18 by PETER Hatch) Father Heart disease Mother Colon cancer Social History (Updated 12/17/24 @ 10:18 by PETER Hatch) Household Members: Spouse Housing: House Alcohol intake: current Alcohol intake frequency: holidays/special occasions only Patient Tobacco Use Status: Former Tobacco user service: No Current occupational status: retired Cognitive needs: No Hearing needs: No Vision needs: Yes (rx glasses) Questionnaire PHQ-9 Over the last 2 weeks, how often have you been bothered by any of the following problems? 1. Little interest or pleasure in doing things: not at all 2. Feeling down, depressed, or hopeless: not at all 3. Trouble falling or staying asleep, or sleeping too much: not at all 4. Feeling tired or having little energy: not at all 5. Poor appetite or overeating: not at all 6. Feeling bad about yourself - or that you are a failure or have let yourself or your family down: not at all 7. Trouble concentrating on things, such as reading the newspaper or watching television: not at all 8. Moving or speaking so slowly that other people could have noticed. Or the opposite - being so fidgety or restless that you have been moving around a lot more than usual: not at all 9. Thoughts that you would be better off or of hurting yourself in some way: not at all Total score: 0 Source: Developed by Drs. Gume Hastings, Alayna Najera, Sen Angel and colleagues, with an educational jasper from [employer]. Thrive Questionnaire Date Thrive assessed: 12/17/24 I am a: Patient What is your living situation today?: I have a steady place to live Within the past 12 months, did the food you bought not last and you didn't have the money to get more?: Never true Within the past 12 months, did you worry whether your food would run out before you got money to buy more?: Never true Do you have trouble paying for medicines?: No Do you have trouble getting transportation to medical appointments?: No Do you have trouble paying your heating and electricity bill?: No Do you have trouble taking care of your child, family member or friend?: No Do you have trouble with day-to-day activities such as bathing, preparing meals, shopping, managing finances, etc.?: No Are you currently unemployed and looking for a job?: No Are you interested in more education?: No Please select the resources that you would like help with: None THRIVE Score: 0 AUDIT C Alcohol Use Questionnaire (AUDIT-C) 1. How often do you have a drink containing alcohol?: Monthly or less 2. How many drinks containing alcohol do you have on a typical day when you are drinking?: 1 or 2 3. How often do you have six or more drinks on one occasion?: Never Total Score: 1 PARVIZ-7 AMB Questionnaire PARVIZ-7 Date PARVIZ - 7 assessed: 12/17/24 Feeling nervous, anxious, or on edge: 0 = Not at all Not being able to stop or control worryin = Not at all Worrying too much about different things: 0 = Not at all Trouble relaxin = Not at all Being so restless that it is hard to sit still: 0 = Not at all Becoming easily annoyed or irritable: 0 = Not at all Feeling afraid as if something awful might happen: 0 = Not at all Total PARVIZ-7 score (0-4 normal; 5-9 mild; 10-14 moderate; 15-21 severe): 0 Source: Developed by Drs. Gume Hastings, Alayna Najera, Sen Angel and colleagues, with an educational jasper from [employer]. Physical exam (Primary Care) Vital Signs: Last Vital Signs Temp 97.0 F 12/17/24 10:13 Pulse 86 12/17/24 10:13 BP 122/78 12/17/24 10:13 Pulse Ox 97 12/17/24 10:13 Oxygen Delivery Method Room Air 12/17/24 10:13 Tobacco/Smoking Status: Tobacco use Status Tobacco use date assessed 12/17/24 12/17/24 10:10 Patient Tobacco Use Status Former Tobacco user 12/17/24 10:18 PHQ-9: PHQ-9 Score PHQ-9: Total score 0 12/17/24 10:10 Thrive Assessment: Date of Thrive Assessment Date Thrive assessed 12/17/24 12/17/24 10:10 Coding Level of Care Code New Pt Level 4 (33711) Complex EM visit Add On G2211 Diagnoses Osteoarthritis M19.90 Assessment & Plan Assessment & Plan (1) Osteoarthritis: Code(s): M19.90 - Unspecified osteoarthritis, unspecified site Plan: BW ordered. X rays ordered. ES tylenol 1 g per day suggested., Follow up in four weeks Plan History of Present Illness The patient is a 74-year-old female presenting with upper extremity pain and stiffness, indicating osteoarthritis based on clinical findings. She experiences shooting pains and difficulty with movement, which began six months ago, mainly affecting her hands and arms. Morning stiffness is present but resolves in less than an hour. 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 Her IBS is being managed with loperamide as per previous instruction and her planned cataract surgery is underway. Recent blood work lacked clarity, particularly regarding thyroid and lipid profiles, and her concerns were not addressed due to office changes. 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 [employer] - Lives with her , no longer has children living at home - Engages in regular balance exercises - Does not smoke - Reports reduced daily stress post-senior care Review of Systems - Respiratory: Reports shortness of breath upon exertion such as stair climbing - Musculoskeletal: Reports morning stiffness in hands and arms with pain during certain activities Physical Exam General: Appearance normal, both eyes and all related structures Nutritional Appearance: Well nourished Orientation/consciousness: Patient oriented x3 Limitations: No limitations Head: Normal to inspection Neck: Normal visual inspection Chest: Normal palpation of entire chest wall Respiratory: Shortness of breath when going up and down the stairs Neurology: Patient oriented x3 Hands: Symmetrical swelling In the PIP bilaterally Results - Routine blood work was normal, but thyroid function and cholesterol levels were not assessed - Plan to order X-rays of both hands Plan I suspect the patient is experiencing symptoms of osteoarthritis. Management will consist of extra strength acetaminophen daily. I plan to order X-rays to check for arthritic changes and conduct blood testing to assess inflammatory markers and previously unaddressed cholesterol and thyroid levels. Patient was informed and verbally consented to the use of an ambient scribe for clinic note documentation during this visit. Discussion Notes During the visit, I explained to the patient that the symptoms align with osteoarthritis, a common condition in older adults. The initial strategy involves using extra strength Tylenol due to its favorable side effect profile compared to NSAIDs. I discussed the implications of untreated thyroid dysfunction and dyslipidemia, warranting specific blood tests. The need for X-rays of the hands was communicated to confirm any articulatory changes. Follow-up in one month will assist in determining how she responds to acetaminophen and plan further management. I clarified that routine symptom relief practice could prevent reliance on more potent medications. Patient Instructions - Start taking extra strength acetaminophen (Tylenol) 1000 mg daily - Complete X-rays of both hands and scheduled blood tests - No need to fast before the blood draws - Return for follow-up appointment in four weeks - Notify us sooner if symptoms worsen or new issues arise Orders: Orders Thyroid Stimulating Hormone Today M19.90 - Unspecified osteoarthritis, unspecified site C Reactive Protein Today M19.90 - Unspecified osteoarthritis, unspecified site XR hand RT 2V Today M19.90 - Unspecified osteoarthritis, unspecified site Lipid Panel Today M19.90 - Unspecified osteoarthritis, unspecified site XR hand LT min 3V Today M19.90 - Unspecified osteoarthritis, unspecified site
[2024-12-17 10:13] VITALS: BP 122/78; PULSE 86; TEMP 36.1; O2SAT 97
== END 2024-12-17 10:54 | disposition home or self-care (01) ==
LOC: HO.HMCHD 10:03
PROVIDERS: PCP Internal Medicine; Visit Provider Internal Medicine
DX: M19.90 Unspecified osteoarthritis, unspecified site (principal)

== ENCOUNTER → 2024-12-17 10:02 | Outpatient (BNVA) | payer MEDICARE, SELFPAY | PROVIDERS: PCP Internal Medicine; Visit Provider Internal Medicine | DX: M19.90 Unspecified osteoarthritis, unspecified site (principal) | CPT/HCPCS: 99202 ==

== ENCOUNTER 2024-12-18 10:09 | Outpatient (REF) | payer MEDICARE, SELFPAY ==
--- NOTE | ~2024-12-18 | XR_ITS ---
EXAMINATION: X-RAY HAND, BILATERALLY, 3 VIEWS. CLINICAL INFORMATION: Unspecified osteoarthritis. TECHNIQUE: 3 views of the hands. COMPARISON: Right hand x-ray dated May 17, 2008 is not available on PACS. FINDINGS: Left hand: Degenerative changes with sclerosis and joint space narrowing involving the middle and distal interphalangeal joints of the digits as well as the first and second carpometacarpal joints and the radiocarpal joint. No acute cortical disruption or malalignment. No lytic or blastic lesions. No subcutaneous emphysema. Right hand: Degenerative changes involving the middle and distal interphalangeal joints of the digits more conspicuous on the fifth and to a lesser extent fourth third and second digits. Degenerative changes in the first carpometacarpal joints and the radiocarpal joint. No acute cortical disruption or malalignment. No lytic or blastic lesions. XR/XR Hand Bilat min 3v IMPRESSION: Osteoarthritis, both hands. Electronically signed by: Reynold Garcia MD 12/19/2024 10:47 AM EDT
[2024-12-18 12:22] LABS: Cholesterol 190 mg/dL (<200); HDL Cholesterol 54 mg/dL (>40); LDL Cholesterol Calculated 112 mg/dL (<100); Triglycerides 120 mg/dL (<150)
[2024-12-18 12:39] LABS: Thyroid Stimulating Hormone 2.15 uIU/mL (0.32-4.0)
== END 2024-12-18 10:10 | disposition home or self-care (01) ==
LOC: HO.XRAY 10:09
PROVIDERS: PCP Internal Medicine; Visit Provider Internal Medicine
DX: M19.042 Primary osteoarthritis, left hand (principal); M19.041 Primary osteoarthritis, right hand
CPT/HCPCS: 36415; 73130; 80061; 84443; 86140

== ENCOUNTER → 2024-12-18 10:13 | Outpatient (BNV) | payer MEDICARE, SELFPAY | PROVIDERS: PCP Internal Medicine; Visit Provider Radiology Diagnostic Radiology | DX: M79.641 Pain in right hand (principal); M79.642 Pain in left hand | CPT/HCPCS: 73130 ==

== ENCOUNTER 2025-01-21 10:00 | Outpatient (AMB) | payer MEDICARE, SELFPAY ==
--- NOTE | 2025-01-21 10:09 | A.OFFPC_ITS ---
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 Accompanied by: Self / Same As Patient Allergies Oulzerp-YJT-VeM Reductase Inhibitor Allergy (Intermediate, Verified 01/21/25 10:40) Muscle cramps sulfamethoxazole [From Bactrim] Allergy (Intermediate, Verified 01/21/25 10:40) Hives trimethoprim [From Bactrim] Allergy (Intermediate, Verified 01/21/25 10:40) Hives Medication List - Last Reconciled 01/21/25 by Jet Keller MD acetaminophen (Tylenol Extra Strength) 500 mg PO DAILY cetirizine (Zyrtec) 10 mg PO DAILY cholecalciferol (vitamin D3) 25 mcg PO DAILY ezetimibe 10 mg PO DAILY losartan 25 mg PO DAILY Tobacco use date assessed: 01/21/25 Fall risk assessment: No Falls in past year Last assessed Fall Risk: 01/21/25 Dental Screening Dental Screen Date: 01/21/25 Did you have a dental visit in the last 12 months?: Yes Did you have a dental problem in the last 6 months where you did not have access to dental care?: No PFSH Medical History (Updated 01/21/25 @ 10:41 by Jet Keller MD) Osteoarthritis Elevated cholesterol HTN (hypertension) Surgical History Hx of shoulder surgery Hx of tubal ligation H/O colonoscopy (~12/20/23) Family History Father Heart disease Mother Colon cancer Social History Household Members: Spouse Housing: House Alcohol intake: current Alcohol intake frequency: holidays/special occasions only Patient Tobacco Use Status: Former Tobacco user e-Cigarette/Vaping Use: Former Use service: No Current occupational status: retired Cognitive needs: No Hearing needs: No Vision needs: Yes (rx glasses) Questionnaire PHQ-9 Over the last 2 weeks, how often have you been bothered by any of the following problems? 1. Little interest or pleasure in doing things: not at all 2. Feeling down, depressed, or hopeless: not at all 3. Trouble falling or staying asleep, or sleeping too much: not at all 4. Feeling tired or having little energy: not at all 5. Poor appetite or overeating: not at all 6. Feeling bad about yourself - or that you are a failure or have let yourself or your family down: not at all 7. Trouble concentrating on things, such as reading the newspaper or watching television: not at all 8. Moving or speaking so slowly that other people could have noticed. Or the opposite - being so fidgety or restless that you have been moving around a lot more than usual: not at all 9. Thoughts that you would be better off or of hurting yourself in some way: not at all Total score: 0 Depression Screening Interpretation: Negative Depression Screening Done: Yes Source: Developed by Drs. Gume Hastings, Alayna Najera, Sen Angel and colleagues, with an educational jasper from [employer]. Thrive Questionnaire Date Thrive assessed: 01/21/25 I am a: Patient Within the past 12 months, did the food you bought not last and you didn't have the money to get more?: Never true Within the past 12 months, did you worry whether your food would run out before you got money to buy more?: Never true Do you have trouble paying for medicines?: No Do you have trouble getting transportation to medical appointments?: No Do you have trouble paying your heating and electricity bill?: No Do you have trouble taking care of your child, family member or friend?: No Do you have trouble with day-to-day activities such as bathing, preparing meals, shopping, managing finances, etc.?: No Are you currently unemployed and looking for a job?: No Are you interested in more education?: No Currently or been in a relationship where the following occur: No concerns reported THRIVE Score: 0 AUDIT C Alcohol Use Questionnaire (AUDIT-C) 1. How often do you have a drink containing alcohol?: Monthly or less 2. How many drinks containing alcohol do you have on a typical day when you are drinking?: 1 or 2 3. How often do you have six or more drinks on one occasion?: Less than monthly Total Score: 2 PARVIZ-7 AMB Questionnaire PARVIZ-7 Date PARVIZ - 7 assessed: 01/21/25 Feeling nervous, anxious, or on edge: 0 = Not at all Not being able to stop or control worryin = Not at all Worrying too much about different things: 0 = Not at all Trouble relaxin = Not at all Being so restless that it is hard to sit still: 0 = Not at all Becoming easily annoyed or irritable: 0 = Not at all Feeling afraid as if something awful might happen: 0 = Not at all Total PARVIZ-7 score (0-4 normal; 5-9 mild; 10-14 moderate; 15-21 severe): 0 Source: Developed by Drs. Gume Hastings, Alayna Najera, Sen Angel and colleagues, with an educational jasper from [employer]. Physical exam (Primary Care) Vital Signs: Last Vital Signs Temp 97 F 01/21/25 10:15 Pulse 64 01/21/25 10:15 BP 120/80 01/21/25 10:15 Pulse Ox 98 01/21/25 10:15 Oxygen Delivery Method Room Air 01/21/25 10:15 Care Plan Goal for BP management: Blood pressure is in range. BMI result Body Mass Index 28.0 Tobacco/Smoking Status: Tobacco use Status Tobacco use date assessed 01/21/25 01/21/25 10:13 Patient Tobacco Use Status Former Tobacco user 01/21/25 10:10 e-Cigarette/Vaping Use Former Use 01/21/25 10:21 PHQ-9: PHQ-9 Score PHQ-9: Total score 0 01/21/25 10:13 Depression Screening Interpretation: Negative Thrive Assessment: Date of Thrive Assessment Date Thrive assessed 01/21/25 01/21/25 10:13 Currently or been in a relationship where the following occur: No concerns reported Advance Care Planning discussion: Exists, not on file Date of discussion: 01/21/25 Who was present: Patient 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 A chest x-ray, EKG and a stress test has been ordered. Patient was advised to have minimal exertional activity till all the tests are completed. (2) Osteoarthritis: Code(s): M19.90 - Unspecified osteoarthritis, unspecified site Category: Medical Plan: Extra-strength Tylenol has been suboptimal. Meloxicam has been started. Patient was encouraged to take drug holidays. Plan History of Present Illness The patient is a 74-year-old female presenting with persistent pain and functional impairment in her hand and wrist due to osteoarthritis. Pain was initially reported a month ago, and subsequent radiographs confirmed osteoarthr itic degeneration in the finger joints. The patient has trialed extra strength acetaminophen at night, which has provided limited relief, citing continued sharp wrist pains, especially during activities such as handling objects or interacting with grandchildren. Additionally, the patient has noted an increase in shortness of breath over the past two to three years, particularly during activities such as shopping or climbing stairs. A stress test conducted approximately three years prior was reportedly normal, yet her family history of heart disease contributes to her concern considering her worsening symptoms. Social History - Engages in activities such as yard work and spring cleaning. - Has grandchildren whom she picks up and interacts with. - Noticed increased shortness of breath during daily activities including visits to shopping malls and after climbing stairs. Review of Systems - Musculoskeletal: Reports pain in hand and wrist joints consistent with osteoarthritis. - Respiratory: Reports shortness of breath exacerbated by physical activity like climbing stairs and visiting the mall. Physical Exam General: Cooperative and healthy appearing Nutritional Appearance: Well nourished Orientation/consciousness: Patient oriented x3 Limitations: No limitations Head: Normal to inspection General: Appearance normal, both eyes and all related structures Neck: Normal visual inspection Chest: Normal palpation of entire chest wall Respiratory: Shortness of breath noted, especially when going to the mall and climbing stairs. ormal respiratory effort Neurology: Patient oriented x3 Results - Labs: No presence of inflammatory markers, which helps rule out rheumatoid arthritis. - Imaging: X-rays confirmed osteoarthritic changes in finger joints. Plan For the management of osteoarthritic pain, I have prescribed meloxicam to be taken with food once daily, instructing the patient to observe 'drug holidays' to balance efficacy with minimal exposure. This is intended to provide superior analgesia compared to acetaminophen. As the shortness of breath persists, we will monitor her symptoms with consideration for further cardiovascular evaluations due to her family history of heart disease, despite prior normal stress test results. There were no further diagnostic interventions planned at this time for her respiratory symptoms. Patient was informed and verbally consented to the use of an ambient scribe for clinic note documentation during this visit. Discussion Notes I discussed with the patient the findings consistent with osteoarthritis, reiterating the need for more potent analgesia given the minimal relief from acetaminophen. I reviewed the benefits and potential side effects of meloxicam, emphasizing its non-addictive profile. I advised the patient on lifestyle management strategies, such as avoiding unnecessary medication when activity levels are low, and provided anticipatory guidance regarding symptom monitoring. Regarding her shortness of breath, I acknowledged the familial heart disease risk and the previous negative stress test, advising vigilance and return if symptoms exacerbate, ultimately considering further evaluation should her status change. Patient Instructions - Take meloxicam once daily with food as prescribed for osteoarthritis pain. - Consider not taking the medication on less active days to see if symptoms are manageable without it. - Monitor shortness of breath specifically during physical activities and report any worsening. - If increased pain persists or shortness of breath worsens, contact the healthcare provider. - Follow up for additional evaluations if symptoms do not improve or escalate. Orders: Orders NM cardiolite stress test Today R06.02 - Shortness of breath XR chest 2V Today R05.9 - Cough, unspecified ECG 12 lead EKG Today R06.02 - Shortness of breath CA lexiscan stress w yovana Today R06.02 - Shortness of breath
[2025-01-21 10:15] VITALS: BP 120/80; PULSE 64; TEMP 36.1; O2SAT 98; BMI 28.0
== END 2025-01-21 10:40 | disposition home or self-care (01) ==
LOC: HO.HMCHD 10:01
PROVIDERS: PCP Internal Medicine; Visit Provider Internal Medicine
DX: R06.02 Shortness of breath (principal); M19.90 Unspecified osteoarthritis, unspecified site; Z00.00 Encounter for general adult medical examination without abnormal findings

== ENCOUNTER → 2025-01-21 10:00 | Outpatient (REF) | payer MEDICARE, SELFPAY ==
--- NOTE | 2025-01-21 10:58 | ECG_ITS ---
Test Reason : SOB Blood Pressure : */* mmHG Vent. Rate : 66 BPM Atrial Rate : 66 BPM P-R Int : 166 ms QRS Dur : 76 ms QT Int : 418 ms P-R-T Axes : 28 -14 8 degrees QTcB Int : 438 ms Sinus rhythm with occasional Premature ventricular complexes Cannot rule out Anterior infarct (cited on or before 15-Jun-2004) Abnormal ECG When compared with ECG of 15-Jun-2004 16:22, Premature ventricular complexes are now Present Criteria for Inferior infarct are no longer Present Referred By: Jet Keller Electronically Signed By:
== END ==
LOC: HO.CARD 10:00
PROVIDERS: PCP Internal Medicine; Visit Provider Internal Medicine
DX: R06.02 Shortness of breath (principal); R05.9 Cough, unspecified; M19.90 Unspecified osteoarthritis, unspecified site
CPT/HCPCS: 71046; 93005; 99212

== ENCOUNTER → 2025-01-21 11:11 | Outpatient (BNV) | payer MEDICARE, SELFPAY | PROVIDERS: PCP Internal Medicine; Visit Provider Radiology Diagnostic Radiology | DX: R05.9 Cough, unspecified (principal) | CPT/HCPCS: 71046 ==

== ENCOUNTER 2025-03-14 08:47 | Outpatient (AMB) | payer MEDICARE, SELFPAY ==
--- OUTSIDE RECORDS SUMMARY | 2023-10-27 09:15 | XMS_ITS ---
Author Organization [facility] Address [address] [place] [id number] Care Team Providers Care Archery Instructor Name Role Phone Rogelio Garcia MD Primary Care Provider Chapo Cox Jr Unavailable Allergies Allergen (clinical drug ingredient) Drug/Non Drug Allergy documented on EMR Reaction Allergy Type Onset Date Status Sulfa Unknown Drug Allergy Active sulfamethoxazole / trimethoprim Bactrim Unknown Drug Allergy Active Substance with 1-meidzxo-2-methylglutaryl -coenzyme A reductase inhibitor mechanism of action (substance) statins (uncoded) Unknown Allergy Acti ve REASON FOR VISIT Patient presents today for a discuss colonoscopy Medications Medication SIG (Take, Route, Frequency, Duration) Notes Start Date End Date Status MiraLax (colon prep) 17 GM/SCOOP mixed with Gatorade or Crystal Light Orally begin at 5:00 p.m. the day before the procedure for 1 day 10/27/2023 Active Losartan Potassium 25 MG TAKE 1 TABLET B Y MOUTH EVERY DAY Oral for 90 Active Calcium + D 600mg Ac tive Ezetimibe 10 MG TAKE 1 TABLET BY JANIE TH EVERY DAY Oral for 90 Active ZyrTEC Allergy Activ e Social History Tobacco Use: Social History Observation Description Date Details (start date - stop date) Never Smoker NA - NA Tobacco Use/Smoking Question Answer Notes Patient is a nonsmoker Alcohol Screen Question Answer Notes Did you have a drink contain ing alcohol in the past year? Yes Points 3 Interpretation Positive How often did you have 6 or more drinks on one occasion in the past year? Never (0 point) How many drinks did you have on a typical day when you were drinking in the past year? 1 or 2 drinks (0 point) How often did you have a dri nk containing alcohol in the past year? 2 to 3 times a week (3 points) Problems Problem Type SNOMED Code ICD Code Onset Dates Problem Status W/U Status Risk Notes Problem [id number] Colon cancer screening (Z12.11) Active confirmed Problem [id number] FH: colon cancer (Z80.0) Active confirmed Vital Signs Temperature 96.8 degrees Fahrenheit 10/27/19 24 Blood pressure systolic 00 mm Hg 10/27/19 24 Blood pressure diastolic 000 mm Hg 024 Height 63.5 in 10/27/2023 Weight 152 lbs 10/27/2023 BMI 26.50 kg/m2 10/27/2023 Encounters Encounter Location Date Provider Diagnosis [facility] [address] [place] [address] 10/27/2023 Chapo Mir Jr Colon cancer screening Z12.11 and FH: colon cancer Z80.0 Assessments Encounter Date Diagnosis (ICD Code) Assessment Notes Treatment Notes Treatment Clinical Notes Section Notes 10/27/2023 Colon cancer screening (ICD-10 - Z12.11) Colonoscopy material was printed We discussed colonoscopy today. We discussed her symptoms as of the procedure today. She understands these and agrees to proceed. This will be scheduled at her convenience. 10/27/2023 FH: colon cancer (ICD-10 - Z80.0) We discussed colonoscopy today. We discussed her symptoms as of the procedure today. She understands these and agrees to proceed. This will be scheduled at her convenience. Plan Of Treatment Medication Medication Name Sig Start Date Stop Date Notes MiraLax (colon prep) 17 GM/SCOOP mixed with Gatorade or Crystal Light Orally begin at 5:00 p.m. the day before the procedure for 1 day 10/27/2023 Treatment Notes Assessment Notes Colon cancer screening Colonoscopy mater ial was printed Future Test Test Name Order Date COLONOSCOPY 10/27/2023 Next Appt Details Follow Up: prn, Reason: Progress Notes * KARENA TRUONG LDOB: 0 (73 yo F)Acc No.[id number]:10/27/2023 Progress Notes Patient: Temo ALEXANDRIAKARENA Catrachita Provider: Soham Mir MD :1950 A ge:73 Y S ex:Female Date:10/27/2023 Address:[address] [place] [address] [place] [address] [id number] Pcp:Rogelio Garcia MD Subjective: * Chief Complaints: * 1 . Patient presents today for a discuss colonoscopy. * HPI: N ew symptom(s): Karena is a pleasant 73-year-old woman seen today in consultation for her preoperative colonoscopy visit. She has year-old bowel symptoms with intermittent diarrhea for which she takes Imodium. Stress seems to make this worse. Last colonoscopy in 2011 showed a hyperplastic polyp and nonspecific changes on mucosal biopsies. There is a history of colon cancer in her family, specifically in her mother who had it in her 80s and required surgery. * ROS: G eneral/Constitutional: Change in appetite d enies. F atigue d enies. ? E NT: Patient denies d ifficulty swallowing. R espiratory: Patient denies s hortness of breath. C ardiovascular: Patient denies c hest pain. G astrointestinal: Comments S HPI for details. G enitourinary: Difficulty urinating d enies. I ncontinence d enies. M usculoskeletal: Patient denies m uscle aches. S kin: Patient denies p ruritis. N eurologic: Patient denies l ow back pain. P sychiatric: Patient denies m ental or physical abuse. * Medical History: H ypertension, Hyperlipidemia, Colonoscopy 08/07, hyperplastic polyp, other nonspecific findings. * Surgical History: t ubal ligation , frozen shoulder left manipulation . * Family History: F ather: . M other: , colon cancer at age 80. * Social History: T obacco Use: T obacco Use/Smoking P atient is a n onsmoker. D rugs/Alcohol: A lcohol Screen D id you have a drink containing alcohol in the past year? Y es, H ow often did you have 6 or more drinks on one occasion in the past year? N ever (0 point), H ow many drinks did you have on a typical day when you were drinking in the past year? 1 or 2 drinks (0 point), H ow often did you have a drink containing alcohol in the past year? 2 to 3 times a week (3 points), P oints 3 , I nterpretation P ositive. M iscellaneous: M arital status: . 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 * Medications: T devan ZyrTEC Allergy , Taking Calcium + D 600mg , Taking Ezetimibe 10 MG Tablet TAKE 1 TABLET BY MOUTH EVERY DAY Oral , Taking Losartan Potassium 25 MG Tablet TAKE 1 TABLET BY MOUTH EVERY DAY Oral , Discontinued Zetia 10mg , Discontinued Cranberry , Discontinued Metamucil , Discontinued OsmoPrep 1.102-0.398 GM Tablet 32 tablets Orally over two days as directed, Discontinued Align 4 MG Capsule as directed Orally , Discontinued Anusol-HC 25 MG Suppository 1 suppository Rectal q.h.s., Medication List reviewed and reconciled with the patient * Allergies: S ulfa, Bactrim, statins. Objective: * Vitals: W t: 152 lbs, Ht: 63.5 in, BMI:26.50 Index, BP: 00/000 mm Hg, Temp: 96.8. * Examination: G eneral Examination: GENERAL APPEARANCE: i n no acute distress. HEAD: n ormocephalic. EYES: s clera non-icteric. ORAL CAVITY: m ucosa moist. NECK/THYROID: n o lymphadenopathy. SKIN: a nicteric. HEART: S 1, S2 normal, no murmurs. LUNGS: c lear to auscultation bilaterally. CHEST: n ormal shape and expansion. ABDOMEN: s oft, nontender, nondistended, bowel sounds present, no organomegaly . EXTREMITIES: n o clubbing, cyanosis, or edema. PSYCH: c ognitive function intact. Assessment: * Assessment: 1. C olon cancer screening - Z12.11 (Primary) 2 . F H: colon cancer - Z80.0 We discussed colonoscopy tod ay. We discussed her symptoms as of the procedure today. She understands these and agrees to proceed. This will be scheduled at her convenience. Plan: * Treatment: * Preventive Medicine: Counseling: C are goal follow-up plan: A kenia Normal BMI Follow-up G iving encouragement to exercise, B MA management provided Y es. Urinary Incontinence: U rinary Incontinence A ssessment: A bsent, P keo of care documented: N o, reason not specified. * Follow Up: p rn * * Sign off status: Completed true * Provider: Soham Mir MD Date: 0 10/27/2023 Generated for Vita diaz/Mariana/Blake on: 0 03/14/2025 09:12 AM EDT History and Physical Notes * HPI (History of Present Illness) Category Sub-Category Detail Notes Category Not es New symptom(s) Karena is a ple asant 73-year-old woman seen today in consultation for her preoperative colonoscopy visit. She has year-old bowel symptoms with intermittent diarrhea for which she takes Imodium. Stress seems to make this worse. Last colonoscopy in 2011 showed a hyperplastic polyp and nonspecific changes on mucosal biopsies. There is a history of colon cancer in her family, specifically in her mother who had it in her 80s and required surgery. Examination Category Sub-Category Detail Notes Category Not es General Examination GENERAL APPEARANCE: in no acute di stress HEAD: normocephalic EYES: sclera non-icteric NECK/THYROID: no lymphadenopathy HEART: S1, S2 normal, no mu rmurs CHEST: normal shape and exp ansion LUNGS: clear to auscultatio n bilaterally ABDOMEN: soft, nontender, non distended, bowel sounds present, no organomegaly SKIN: anicteric EXTREMITIES: no clubbing, cyanosi s, or edema PSYCH: cognitive function i ntact ORAL CAVITY: mucosa moist
--- NOTE | 2025-03-14 08:52 | A.OFFPC_ITS ---
Vital Signs 03/14/25 08:53 Height 5 ft 2 in Weight 151 lb 6 oz BMI 27.7 BP 130/68 Blood Pressure Location Lt brachial Position Sitting Pulse 81 Pulse Source Pulse Oximeter Temp 96.9 F Temp Source Temporal Artery Scan Pulse Oximetry (%) 96 Oxygen Delivery Method Room Air Intake Visit Reasons: Cataract surgery lft 04/01, rt 04/15 Intake Note: Patient is here for a Pre-op for Cataract surgery scheduled with Dr Morrison ([facility]) on left 04/01/25, right 04/09/25. 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 Accompanied by: Self / Same As Patient Allergies Fvuuata-ZPP-XfX Reductase Inhibitor Allergy (Intermediate, Verified 03/14/25 08:53) Muscle cramps sulfamethoxazole (From Bactrim) Allergy (Intermediate, Verified 03/14/25 08:53) Hives trimethoprim (From Bactrim) Allergy (Intermediate, Verified 03/14/25 08:53) Hives Tobacco use date assessed: 03/14/25 Fall risk assessment: No Falls in past year Last assessed Fall Risk: 03/14/25 Dental Screening Dental Screen Date: 01/21/25 ON LICENSE OF [facility] Medical History (Updated 03/14/25 @ 09:22 by Jet Keller MD) Osteoarthritis Elevated cholesterol HTN (hypertension) Surgical History Hx of shoulder surgery Hx of tubal ligation H/O colonoscopy (~12/20/23) Family History Father Heart disease Mother Colon cancer Social History Household Members: Spouse Housing: House Alcohol intake: current Alcohol intake frequency: holidays/special occasions only Patient Tobacco Use Status: Former Tobacco user e-Cigarette/Vaping Use: Former Use Second Hand Smoke Exposure: Yes service: No Current occupational status: retired Cognitive needs: No Hearing needs: No Vision needs: Yes (rx glasses) Questionnaire Thrive Questionnaire Date Thrive assessed: 01/21/25 AUDIT C Alcohol Use Questionnaire (AUDIT-C) 2. How many drinks containing alcohol do you have on a typical day when you are drinking?: 1 or 2 3. How often do you have six or more drinks on one occasion?: Never Total Score: 0 PARVIZ-7 AMB Questionnaire PARVIZ-7 Date PARVIZ - 7 assessed: 01/21/25 Source: Developed by Drs. Gume Hastings, Alayna Najera, Sen Angel and colleagues, with an educational jasper from [employer]. Physical exam (Primary Care) Vital Signs: Last Vital Signs Temp 96.9 F 03/14/25 08:53 Pulse 81 03/14/25 08:53 BP 130/68 03/14/25 08:53 Pulse Ox 96 03/14/25 08:53 Oxygen Delivery Method Room Air 03/14/25 08:53 BMI result Body Mass Index 27.7 Tobacco/Smoking Status: Tobacco use Status Tobacco use date assessed 03/14/25 03/14/25 08:59 Patient Tobacco Use Status Former Tobacco user 03/14/25 08:59 e-Cigarette/Vaping Use Former Use 03/14/25 08:59 Thrive Assessment: Date of Thrive Assessment Date Thrive assessed 01/21/25 03/14/25 08:59 Coding Level of Care Code Est Pt Level 4 (19779) Complex EM visit Add On G2211 Diagnoses HTN (hypertension) I10 Pre-operative clearance Z01.818 Assessment & Plan Assessment & Plan (1) HTN (hypertension): Code(s): I10 - Essential (primary) hypertension Category: Medical Plan: Blood pressure is in range. Continue current management. (2) Pre-operative clearance: Code(s): Z01.818 - Encounter for other preprocedural examination Plan: Patient is cleared for cataract extraction surgery under MAC. Plan History of Present Illness - The patient is a 74-year-old female presenting with cataract clearance for surgery. - Cataracts: Surgery scheduled for April 01 and April 09, with modified anesthesia care. - Osteoarthritis: Managed with meloxicam, adjusted to every two days due to m orning stiffness. - Irritable Bowel Syndrome (IBS): Managed without recent exacerbations. - Preventative care: Mammogram and colonoscopy up to date, routine blood work planned. Social History - Exercise: Engages in physical activity through [employer], caring for grandchildren aged seven, four, and two years old. Review of Systems - Gastrointestinal: Reports living with irritable bowel syndrome. - Musculoskeletal: Reports morning stiffness managed with meloxicam. Physical Exam General: Cooperative and healthy appearing Nutritional Appearance: Well nourished Orientation/consciousness: Patient oriented x3 Limitations: No limitations Head: Normal to inspection General: Appearance normal, both eyes and all related structures Neck: Normal visual inspection Chest: Normal palpation of entire chest wall Respiratory: N ormal respiratory effort Neurology: Patient oriented x3, no changes in health since last visit. Results - Cardiovascular: EKG was normal. - Scheduled: Nuclear stress test planned for next . Plan 1. Cataracts - Cataract surgery scheduled for April 01 and April 09 with modified anesthesia care. - Discontinue meloxicam three to four days prior to surgery. 2. Osteoarthritis - Adjust meloxicam to every two days due to morning stiffness. - Increase meloxicam prescription to 30 pills. 3. Irritable Bowel Syndrome (Ibs) - Managed without recent exacerbations. 4. Preventative Care - Routine blood work to be completed. - Mammogram and colonoscopy are up to date. Discussion Notes The patient was informed about the cataract surgery scheduled for April 01 and April 09, with modified anesthesia care. It was discussed to discontinue meloxicam three to four days prior to surgery to avoid complications. The patient was advised to complete routine blood work and was reassured that the nuclear stress test scheduled for next would not interfere with the surgery. Preventative care measures, including mammogram and colonoscopy, were confirmed to be up to date. Patient Instructions - Stop taking meloxicam three to four days before surgery. - Complete routine blood work as ordered. - Attend the nuclear stress test scheduled for next . - Continue current exercise routine through babysitting activities. Orders: Orders Basic Metabolic Panel Today I10 - Essential (primary) hypertension Complete Blood Count no Diff Today I10 - Essential (primary) hypertension Lipid Panel Today I10 - Essential (primary) hypertension Liver Panel Today I10 - Essential (primary) hypertension UA and rflx microscopic Today I10 - Essential (primary) hypertension Thyroid Stimulating Hormone Today I10 - Essential (primary) hypertension Medications: Refilled meloxicam 15 mg PO DAILY 30 tabs 0RF
[2025-03-14 08:53] VITALS: BP 130/68; PULSE 81; TEMP 36.1; O2SAT 96; BMI 27.7
== END 2025-03-14 10:01 | disposition home or self-care (01) ==
PROVIDERS: PCP Internal Medicine; Visit Provider Internal Medicine
DX: I10 Essential (primary) hypertension (principal); Z01.818 Encounter for other preprocedural examination

== ENCOUNTER → 2025-03-14 08:47 | Outpatient (BNVA) | payer MEDICARE, SELFPAY | PROVIDERS: PCP Internal Medicine; Visit Provider Internal Medicine | DX: Z01.818 Encounter for other preprocedural examination (principal); H26.9 Unspecified cataract; I10 Essential (primary) hypertension; Z87.891 Personal history of nicotine dependence | CPT/HCPCS: 99212 ==

== ENCOUNTER 2025-03-19 07:48 | Outpatient (REF) | payer MEDICARE, SELFPAY ==
--- OUTSIDE RECORDS SUMMARY | 2025-03-19 07:51 | XMS_ITS | Patient Health Record ---
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 Order Clerk Name Role Phone Rogelio Garcia MD Primary Care Provider Chapo Cox Jr Unavailable [phone] Allergies Allergen (clinical drug ingredient) Drug/Non Drug Allergy documented on EMR Reaction Allergy Type Onset Date Status Sulfa Unknown Drug Allergy Active sulfamethoxazole / trimethoprim Bactrim Unknown Drug Allergy Active Substance with 0-gvmtajr-4-methylglutaryl -coenzyme A reductase inhibitor mechanism of action (substance) statins (uncoded) Unknown Allergy Acti ve Reason For Referral No Information Medications Medication SIG (Take, Route, Frequency, Duration) [...] MOUTH EVERY DAY Oral for 90 Active Problems Problem Type SNOMED Code ICD Code Onset Dates Problem Status W/U Status Risk Notes Problem [id number] Colon cancer screening (Z12.11) Active confirmed Problem [id number] FH: colon cancer (Z80.0) Active confirmed Plan Of Treatment Future Test Test Name Order Date COLONOSCOPY 06/23/2012 COLONOSCOPY 10/27/2023 Insurance Providers Payer Name Payer Address Payer Phone Subscriber Number Group Number Insured Name Patient Relationship to Insured Coverage Start Date Coverage End Date MEDICARE OF [place] [address] [place], [place] [id number] KARENA TRUONG Self - patient is the insured MED[employer] ATTN CLAIMS [address] [place] [address] [id number] KARENA TRUONG Self - patient is the insured Medical (General) History Medical History History ICD Code Hypertension Hyperlipidemia Colonoscopy 08/07, hyperplastic polyp, o ther nonspecific findings Surgical History Surgery Date(Month/Year) tubal ligation frozen shoulder left manipulation
[2025-03-19 08:25] LABS: Hemoglobin 14.5 g/dl (12.0-16.0); Mean Corpuscular HGB Conc 34.5 g/dl (31.0-35.0); Mean Corpuscular Hemoglobin 31.7 pg (27.0-33.0); Mean Corpuscular Volume 91.9 fL (80.0-98.0); Mean Platelet Volume 9.8 fL (9.4-12.3); Platelet Count 214 X10*3/uL (160-400); Red Blood Count 4.57 X10*6/uL (4.20-5.50); Red Cell Distribution Width 12.8 % (11.0-16.0); White Blood Count 6.8 X10*3/uL (4.8-10.8)
[2025-03-19 08:50] LABS: Appearance Urine Cloudy; Color Urine Yellow; Glucose Urine UA Negative (Negative); Leukocyte Esterase Urine Moderate (2+) (Negative); Nitrite Urine Positive (Negative); PH 5.5 (5.0-9.0); Specific Gravity - Urine >= 1.030 (1.005-1.025); UMIC TRIGGER UA YES; Urine Blood Negative (Negative); Urine Ketones Negative (Negative); Urine Protein Negative (Neg-Trace)
[2025-03-19 08:56] LABS: Bacteria Urine 4+ (None Seen); Hyaline Casts Urine 0-2 /LPF (0-2); RBC Urine 0-2 /HPF (0-2); WBC Urine >50 /HPF (0-5)
[2025-03-19 09:13] LABS: Alanine Aminotransferase 13 U/L (0-31); Alkaline Phosphatase 77 U/L (39-117); Anion Gap 12 (12-20); Aspartate Amino Transferase 22 U/L (5-31); Bilirubin Direct 0.2 mg/dL (0.0-0.5); Bilirubin Total 0.7 mg/dL (0.0-1.0); Blood Urea Nitrogen 19 mg/dL (9-16); Calcium 9.3 mg/dL (8.4-10.2); Carbon Dioxide 27 mmol/L (22-29); Chloride 110 mmol/L (96-108); Cholesterol 198 mg/dL (<200); Estimated Glomerular Filt Rate > 60; Glucose Random 92 mg/dL (60-115); HDL Cholesterol 58 mg/dL (>40); LDL Cholesterol Calculated 118 mg/dL (<100); Potassium 4.6 mmol/L (3.3-5.1); Sodium 144 mmol/L (135-145); Total Protein 6.3 g/dL (6.5-8.0); Triglycerides 112 mg/dL (<150)
[2025-03-19 09:21] LABS: Thyroid Stimulating Hormone 3.72 uIU/mL (0.32-4.0)
== END 2025-03-19 07:49 | disposition home or self-care (01) ==
LOC: HO.LAB 07:48
PROVIDERS: PCP Internal Medicine; Visit Provider Internal Medicine
DX: I10 Essential (primary) hypertension (principal)
CPT/HCPCS: 36415; 80048; 80061; 80076; 81001; 84443; 85027

== ENCOUNTER → 2025-03-21 08:00 | Outpatient (REF) | payer MEDICARE, SELFPAY ==
--- NOTE | ~2025-03-21 | NM_ITS ---
EXERCISE MYOCARDIAL PERFUSION STUDY INDICATION: Coronary artery disease TECHNIQUE: The patient was brought in for an exercise perfusion study on 03/21/2025. Patient performed exercise as per Brennan protocol and was injected 25 mCi of sestamibi once target heart rate was achieved. Images were obtained using the SPECT gamma camera interlaced with the gating device. Images were obtained in supine position. Resting perfusion study was performed on 03/22/2025. Patient was administered 25 mCi of sestamibi intravenously at rest. Images were then obtained in supine position. Total DLP 66 mGy-cm. Images were processed with the software and compared side to side in short axis, horizontal long axis and vertical long axis views. FINDINGS: Raw aquisition reviewed. The stress perfusion study showed no significant perfusion abnormality. Both uncorrected as well as CT attenuation corrected images were reviewed. The gated study shows normal LV systolic function with calculated LVEF of 72%. LV cavity is normal in size. The gated study shows normal wall thickening and contraction of segments. Resting study shows no significant perfusion abnormality. Gating at rest reveals normal wall motion with ejection fraction at 63%. The findings are consistent with no clear reversible or fixed perfusion abnormality. NM/NM cardiolite stress test IMPRESSION: 1. Myocardial perfusion imaging study shows normal myocardial perfusion. 2. Gated LVEF is 72% during stress and 63% during rest. 3. Transient ischemic dilatation not present. EKG component of the test reported separately. Electronically signed by: Brian Little MD 03/24/2025 12:20 PM EDT
--- NOTE | 2025-03-21 08:02 | CA_ITS ---
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 Without EKG changes meeting criteria for ischemia. In recovery, breathing returned to baseline. Nuclear images pending. Test reviewed with Dr. Little. Would recommend a holter study for the arrythmias. Referred By: Jet Keller Electronically Signed By: Abhijit Rawls
--- OUTSIDE RECORDS SUMMARY | 2025-03-21 08:06 | XMS_ITS | Patient Health Record ---
Author Organization [facility] Address [address] [place] [id number] Care Team Providers Care Body Component Engineer Name Role Phone Rogelio Garcia MD Primary Care Provider Chapo Cox Jr Unavailable [phone] Allergies Allergen (clinical drug ingredient) Drug/Non Drug Allergy documented on EMR Reaction Allergy Type Onset Date Status Sulfa Unknown Drug Allergy Active sulfamethoxazole / trimethoprim Bactrim Unknown Drug Allergy Active Substance with 8-nosqxur-3-methylglutaryl -coenzyme A reductase inhibitor mechanism of action [...] Problem Status W/U Status Risk Notes Problem [id number] Colon cancer screening (Z12.11) Active confirmed Problem [id number] FH: colon cancer (Z80.0) Active confirmed Plan Of Treatment Future Test Test Name Order Date COLONOSCOPY 06/23/2012 COLONOSCOPY 10/27/2023 Insurance Providers Payer Name Payer Address Payer Phone Subscriber Number Group Number Insured Name Patient Relationship to Insured Coverage Start Date Coverage End Date [place] [address] [place], [place] [id number] [phone] [id number] KARENA TRUONG Self - patient is the insured MEDEX ATTN CLAIMS [address] [place] [address] [id number] KARENA TRUONG Self - patient is the insured Medical (General) History Medical History History ICD Code Hypertension Hyperlipidemia Colonoscopy 08/07, hyperplastic polyp, o ther nonspecific findings Surgical History Surgery Date(Month/Year) tubal ligation frozen shoulder left manipulation
== END ==
LOC: HO.CARD 08:00
PROVIDERS: PCP Internal Medicine; Visit Provider Internal Medicine
DX: R06.02 Shortness of breath (principal)
CPT/HCPCS: 78452; 93017; A9500; J0280; J2785

== ENCOUNTER → 2025-03-21 08:02 | Outpatient (BNV) | payer MEDICARE, SELFPAY | PROVIDERS: PCP Internal Medicine | DX: R06.02 Shortness of breath (principal); I49.1 Atrial premature depolarization; I49.3 Ventricular premature depolarization | CPT/HCPCS: 78452; 93016; 93018 ==

== ENCOUNTER 2025-04-22 09:14 | Outpatient (AMB) | payer MEDICARE, SELFPAY ==
--- NOTE | 2025-04-22 09:19 | A.OFFPC_ITS ---
Vital Signs 04/22/25 09:20 Height 5 ft 2 in Weight 153 lb BMI 28.0 BP 128/84 Blood Pressure Location Lt brachial Position Sitting Respiration 16 Pulse 69 Pulse Source Pulse Oximeter Temp 97.4 F Temp Source Temporal Artery Scan Pulse Oximetry (%) 99 Oxygen Delivery Method Room Air Intake Visit Reasons: 3 Month F/U Lathe Setup Operator Required: No Accompanied by: Self / Same As Patient Allergies Hjoiflk-ZPA-PjX Reductase Inhibitor Allergy (Intermediate, Verified 04/22/25 09:19) Muscle cramps sulfamethoxazole (From Bactrim) Allergy (Intermediate, Verified 04/22/25 09:19) Hives trimethoprim (From Bactrim) Allergy (Intermediate, Verified 04/22/25 09:19) Hives Tobacco use date assessed: 03/14/25 Dental Screening Dental Screen Date: 01/21/25 [facility] Medical History (Updated 03/14/25 @ 09:22 by Jet Keller MD) Osteoarthritis Elevated cholesterol HTN (hypertension) Surgical History Hx of shoulder surgery Hx of tubal ligation H/O colonoscopy (~12/20/23) Family History Father Heart disease Mother Colon cancer Social History Household Members: Spouse Housing: House Alcohol intake: current Alcohol intake frequency: holidays/special occasions only Patient Tobacco Use Status: Former Tobacco user e-Cigarette/Vaping Use: Former Use Second Hand Smoke Exposure: Yes service: No Current occupational status: retired Cognitive needs: No Hearing needs: No Vision needs: Yes (rx glasses) Questionnaire Thrive Questionnaire Date Thrive assessed: 01/21/25 AUDIT C Alcohol Use Questionnaire (AUDIT-C) 1. How often do you have a drink containing alcohol?: 2-4 times a month 2. How many drinks containing alcohol do you have on a typical day when you are drinking?: 1 or 2 Total Score: 2 PARVIZ-7 AMB Questionnaire PARVIZ-7 Date PARVIZ - 7 assessed: 01/21/25 Source: Developed by Drs. Gume Hastings, Alayna Najera, Sen Angel and colleagues, with an educational jasper from [employer]. Physical exam (Primary Care) Vital Signs: Last Vital Signs Temp 97.4 F 04/22/25 09:20 Pulse 69 04/22/25 09:20 Resp 16 04/22/25 09:20 BP 128/84 04/22/25 09:20 Pulse Ox 99 04/22/25 09:20 Oxygen Delivery Method Room Air 04/22/25 09:20 BMI result Body Mass Index 28.0 Tobacco/Smoking Status: Tobacco use Status Tobacco use date assessed 03/14/25 04/22/25 09:22 Patient Tobacco Use Status Former Tobacco user 04/22/25 09:22 e-Cigarette/Vaping Use Former Use 04/22/25 09:22 Thrive Assessment: Date of Thrive Assessment Date Thrive assessed 01/21/25 04/22/25 09:22 Coding Level of Care Code Est Pt Level 4 (27030) Complex EM visit Add On G2211 Diagnoses Palpitations R00.2 Assessment & Plan Assessment & Plan (1) Palpitations: Code(s): R00.2 - Palpitations Plan: History of Present Illness - The patient is a 75-year-old female presenting with follow-up post-cataract hamm rgery and concerns regarding cardiac monitoring and cholesterol management. - Cataract surgery was completed successfully without complications. - The patient was advised by a alarm signal operator to use a meteorology faculty member due to extra beats detected in the upper chambers during a nuclear stress test. - The patient has not yet received the monitor due to scheduling conflicts and lack of follow-up from the alarm signal operator's office. - The patient has a history of hypercholesterolemia but experiences severe leg pain with statin use, leading to discontinuation of the medication. Social History Review of Systems - Cardiovascular: Reports extra beats in the upper chambers detected during a nuclear stress test. Denies chest pain or syncope. - Musculoskeletal: Reports severe leg pain with statin use. Physical Exam General: Cooperative and healthy appearing Nutritional Appearance: Well nourished Orientation/consciousness: Patient oriented x3 Limitations: No limitations Head: Normal to inspection General: Appearance normal, both eyes and all related structures Neck: Normal visual inspection Chest: Normal palpation of entire chest wall Respiratory: Normal respiratory effort Neurology: Patient oriented x3 Results - Nuclear stress test: Detected extra beats in the upper chambers. Plan 1. Cardiac Arrhythmia (Extra Beats In The Upper Chambers) - Plan to use a meteorology faculty member for five days to assess the arrhythmia further. - Follow-up with cardiology for further evaluation and management based on monitor results. 2. Hypercholesterolemia - Statins were discontinued due to severe leg pain. - Consider alternative lipid-lowering therapies or lifestyle modifications. Discussion Notes I discussed with the patient the need for a meteorology faculty member to evaluate the detected arrhythmia further. We also talked about the discontinuation of statins due to leg pain and the possibility of exploring alternative treatments for hypercholesterolemia. I advised the patient to follow up with cardiology for further management based on the monitor results. Patient Instructions - Use the meteorology faculty member for five days as instructed. - Follow up with the alarm signal operator for further evaluation. - Consider discussing alternative cholesterol management options with your healthcare provider. Orders: Orders ECG 5 day holter monitor Today R00.2 - Palpitations
[2025-04-22 09:20] VITALS: BP 128/84; PULSE 69; RESP 16; TEMP 36.3; O2SAT 99; BMI 28.0
--- OUTSIDE RECORDS SUMMARY | 2025-04-22 10:15 | XMS_ITS | Patient Health Record ---
Author Organization [facility] Address [address] [place] [id number] Care Team Providers Care Grading Machine Feeder Name Role Phone Jose (RETIRED) Rogelio PERALTA Primary Care Provide Chapo Wilson Jr Unavailable Allergies Allergen (clinical drug ingredient) Drug/Non Drug Allergy documented on EMR Reaction Allergy Type Onset Date Status Sulfa Unknown Drug Allergy Active sulfamethoxazole / trimethoprim Bactrim Unknown Drug Allergy Active Substance with 3-jgtlucx-3-methylglutaryl -coenzyme A reductase inhibitor mechanism of action [...] Problem Status W/U Status Risk Notes Problem 877105894 Colon cancer screening (Z12.11) Active confirmed Problem [id number] FH: colon cancer (Z80.0) Active confirmed Plan Of Treatment Future Test Test Name Order Date COLONOSCOPY 06/23/2012 COLONOSCOPY 10/27/2023 Insurance Providers Payer Name Payer Address Payer Phone Subscriber Number Group Number Insured Name Patient Relationship to Insured Coverage Start Date Coverage End Date MED[place]ARE OF [place] [address] [place] [address] [id number] KARENA TRUONG Self - patient is the insured MED[employer] ATTN CLAIMS [address] [place] [address] [id number] KARENA TRUONG Self - patient is the insured Medical (General) History Medical History History ICD Code Hypertension Hyperlipidemia Colonoscopy 08/07, hyperplastic polyp, o ther nonspecific findings Surgical History Surgery Date(Month/Year) tubal ligation frozen shoulder left manipulation
== END 2025-04-22 09:32 | disposition home or self-care (01) ==
LOC: HO.HMCHD 09:27
PROVIDERS: PCP Internal Medicine; Visit Provider Internal Medicine
DX: R00.2 Palpitations (principal)

== ENCOUNTER → 2025-04-22 09:14 | Outpatient (BNVA) | payer MEDICARE, SELFPAY | PROVIDERS: PCP Internal Medicine; Visit Provider Internal Medicine | DX: R00.2 Palpitations (principal) | CPT/HCPCS: 99212 ==

== ENCOUNTER 2025-05-03 09:41 | Outpatient (AMB) | payer MEDICARE, SELFPAY ==
--- OUTSIDE RECORDS SUMMARY | 2025-05-03 09:43 | XMS_ITS | Patient Health Record ---
Author Organization [facility] Address [address] [place] [phone] Care Team Providers Care Wood Pattern Maker Name Role Phone Jose (RETIRED) Rogelio PERALTA Primary Care Provide Chapo Wilson Jr Unavailable Allergies Allergen (clinical drug ingredient) Drug/Non Drug Allergy documented on EMR Reaction Allergy Type Onset Date Status Sulfa Unknown Drug Allergy Active sulfamethoxazole / trimethoprim Bactrim Unknown Drug Allergy Active Substance with 6-heiiobz-6-methylglutaryl -coenzyme A reductase inhibitor mechanism of action [...] Problem Status W/U Status Risk Notes Problem [id number] Colon cancer screening (Z12.11) Active confirmed Problem 877440693 FH: colon cancer (Z80.0) Active confirmed Plan Of Treatment Future Test Test Name Order Date COLONOSCOPY 06/23/2012 COLONOSCOPY 10/27/2023 Insurance Providers Payer Name Payer Address Payer Phone Subscriber Number Group Number Insured Name Patient Relationship to Insured Coverage Start Date Coverage End Date [place] [address] [facility] [address] [id number] KARENA TRUONG Self - patient is the insured MED[employer] ATTN CLAIMS [address] [place] [address] [phone] [id number] KARENA TRUONG Self - patient is the insured Medical (General) History Medical History History ICD Code Hypertension Hyperlipidemia Colonoscopy 08/07, hyperplastic polyp, o ther nonspecific findings Surgical History Surgery Date(Month/Year) tubal ligation frozen shoulder left manipulation
[2025-05-03 10:34] VITALS: BP 120/84; PULSE 67; TEMP 36.6; O2SAT 98; BMI 27.8
--- NOTE | 2025-05-03 10:34 | AM.OFFWIN_ITS ---
Intake Vital Signs 05/03/25 10:34 Height 5 ft 2 in Weight 152 lb BMI 27.8 BP 120/84 Blood Pressure Location Lt brachial Position Sitting Pulse 67 Pulse Source Pulse Oximeter Temp 97.8 F Temp Source Oral Pulse Oximetry (%) 98 Oxygen Delivery Method Room Air Intake Visit Reasons: EP Very itchy on back/shoulders Intake Note: presents with itchy back and shoulders after a rash resolved- cortisone not helping, showering relieves itch Patient Tobacco Use Status: Former Tobacco user Allergies Dcbxhuo-RMW-DgD Reductase Inhibitor Allergy (Intermediate, Verified 05/03/25 10:40) Muscle cramps sulfamethoxazole (From Bactrim) Allergy (Intermediate, Verified 05/03/25 10:40) Hives trimethoprim (From Bactrim) Allergy (Intermediate, Verified 05/03/25 10:40) Hives Do you need a note to return to daycare/school/sports/work: No HPI EP Very itchy on back/shoulders HPI Details This is a 75-year-old female patient who presents to the walk-in clinic today with report of a itchy rash on her back over the last week or so. She recently returned from visiting family in [place], and feels the rash could have started from several different occurrences while down there, including possible bug bite or brushing up against tall grasses when walking to the beach. She found mild relief from gpzk-glo-bmllhxb hydrocortisone, aloe, and warm showers, however she remains very itchy and it is keeping her up at night. FORMERLY [facility] Medical History Osteoarthritis Elevated cholesterol HTN (hypertension) Surgical History Hx of shoulder surgery Hx of tubal ligation H/O colonoscopy (~12/20/23) Family History Father Heart disease Mother Colon cancer Social History Household Members: Spouse Housing: House Alcohol intake: current Alcohol intake frequency: holidays/special occasions only Patient Tobacco Use Status: Former Tobacco user e-Cigarette/Vaping Use: Former Use Second Hand Smoke Exposure: Yes service: No Current occupational status: retired Cognitive needs: No Hearing needs: No Vision needs: Yes (rx glasses) Physical Exam Vital Signs: Last Vital Signs Temp 97.8 F 05/03/25 10:34 Pulse 67 05/03/25 10:34 BP 120/84 05/03/25 10:34 Pulse Ox 98 05/03/25 10:34 Oxygen Delivery Method Room Air 05/03/25 10:34 BMI result Body Mass Index 27.8 Const General: cooperative, healthy appearing, comfortable and no acute distress Resp Effort & Inspection: normal respiratory effort Skin Other: slightly erythematous rash upper back between scapula, extending down to thoracic area/brastrap. No open areas. Consistent with contact derm. Extrem General: Yes capillary refill normal and Yes no clubbing, cyanosis or edema Psych Appearance: grossly normal Mental Status: mental status grossly normal Speech and movement: Normal speech and movement present Assessment & Plan Assessment & Plan (1) Contact dermatitis: Code(s): L25.9 - Unspecified contact dermatitis, unspecified cause Qualifiers: Contact dermatitis type: unspecified Plan: Rash consistent with contact dermatitis of unknown irritant. Patient has tried hfkv-zef-zwfrkzp steroid cream and topical products. I will start her on a short course of prednisone, and also hydroxyzine p.r.n. at bedtime, as she has been unable to sleep due to the itching. We reviewed indications, use, possible side effects of these medications. She can continue to apply a mild lotion to the area for comfort. If she does not improve with treatment, she can return to the clinic for further evaluation. All questions were answered and patient verbalizes understanding and agrees to plan. Medications: New prednisone 40 mg (2 x 20 mg) PO DAILY 10 tabs 0RF 5 days L25.9 - Unspecified contact dermatitis, unspecified cause hydroxyzine HCl Take one tablet at bedtime as needed for itching. 25 mg PO BEDTIME PRN 7 tabs 0RF itching 7 days L25.9 - Unspecified contact dermatitis, unspecified cause Coding Level of Care Code Est Pt Level 4 (64477) Diagnoses Contact dermatitis L25.9 Contact dermatitis type: unspecified
== END 2025-05-03 11:07 | disposition home or self-care (01) ==
PROVIDERS: PCP Internal Medicine; Visit Provider Nurse Practitioner Family
DX: L25.9 Unspecified contact dermatitis, unspecified cause (principal)

== ENCOUNTER → 2025-05-03 09:41 | Outpatient (BNVA) | payer MEDICARE, SELFPAY | PROVIDERS: PCP Internal Medicine; Visit Provider Nurse Practitioner Family | DX: L25.9 Unspecified contact dermatitis, unspecified cause (principal) | CPT/HCPCS: 99212 ==

== ENCOUNTER → 2025-05-16 08:29 | Outpatient (REF) | payer MEDICARE, SELFPAY ==
--- NOTE | 2025-05-16 08:32 | HM_ITS ---
Conclusion: 1. Patient was monitored for total period of 5 days 2. Baseline was normal sinus rhythm with average heart rate of 69 beats per minute 3. No significant pauses noted 4. Occasional PACs noted with total burden of 0.56% with frequent short runs of SVT, longest lasting 20 beats and fastest at 191 beats per minute 5. Occasional PVCs noted without any sustained arrhythmias 6. 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 One time correlated with isolated PVC MTDD
--- OUTSIDE RECORDS SUMMARY | 2025-05-16 09:23 | XMS_ITS | Patient Health Record ---
Author Organization [facility] Address [address] [place] [phone] Care Team Providers Care Plate Mill Hand Name Role Phone Jose (RETIRED) Rogelio PERALTA Primary Care Provide Chapo Wilson Jr Unavailable Allergies Allergen (clinical drug ingredient) Drug/Non Drug Allergy documented on EMR Reaction Allergy Type Onset Date Status Sulfa Unknown Drug Allergy Active sulfamethoxazole / trimethoprim Bactrim Unknown Drug Allergy Active Substance with 1-rsjvevp-9-methylglutaryl -coenzyme A reductase inhibitor mechanism of action [...] Problem Status W/U Status Risk Notes Problem [id number] Colon cancer screening (Z12.11) Active confirmed Problem [id number] FH: colon cancer (Z80.0) Active confirmed Plan Of Treatment Future Test Test Name Order Date COLONOSCOPY 06/23/2012 COLONOSCOPY 10/27/2023 Insurance Providers Payer Name Payer Address Payer Phone Subscriber Number Group Number Insured Name Patient Relationship to Insured Coverage Start Date Coverage End Date [place]ARE OF [place] [address] [facility] [place] [address] [id number] KARENA TRUONG Self - patient is the insured MED[employer] ATTN CLAIMS [address] [place] [phone] [id number] KARENA TRUONG Self - patient is the insured Medical (General) History Medical History History ICD Code Hypertension Hyperlipidemia Colonoscopy 08/07, hyperplastic polyp, o ther nonspecific findings Surgical History Surgery Date(Month/Year) tubal ligation frozen shoulder left manipulation
== END ==
LOC: HO.CARD 08:29
PROVIDERS: PCP Internal Medicine; Visit Provider Internal Medicine
DX: R00.2 Palpitations (principal)
CPT/HCPCS: 93242

== ENCOUNTER → 2025-05-16 08:32 | Outpatient (BNV) | payer MEDICARE, SELFPAY | PROVIDERS: PCP Internal Medicine; Visit Provider Internal Medicine Cardiovascular Disease | DX: I49.1 Atrial premature depolarization (principal); I49.3 Ventricular premature depolarization | CPT/HCPCS: 93244 ==

== ENCOUNTER 2025-07-31 12:42 | Outpatient (REF) | payer MEDICARE, SELFPAY ==
--- OUTSIDE RECORDS SUMMARY | 2025-07-31 15:20 | XMS_ITS | Patient Health Record ---
Author Organization [facility] Address [address] [place] [phone] Care Team Providers Care Bingo Usher Name Role Phone Jose (RETIRED) Rogelio PERALTA Primary Care Provide Chapo Wilson Jr Unavailable Allergies Allergen (clinical drug ingredient) Drug/Non Drug Allergy documented on EMR Reaction Allergy Type Onset Date Status Sulfa Unknown Drug Allergy Active sulfamethoxazole / trimethoprim Bactrim Unknown Drug Allergy Active Substance with 9-yrbudps-1-methylglutaryl -coenzyme A reductase inhibitor mechanism of action (substance) statins (uncoded) Unknown Allergy Acti ve Reason For Referral No Information Medications Medication SIG (Take, Route, Frequency, Duration) Notes Start Date End Date Status Calcium + D 600mg Ac tive Ezetimibe 10 MG TAKE 1 TABLET BY JANIE TH EVERY DAY Oral; Duration: 90 Active ZyrTEC Allergy Activ e MiraLax (colon prep) 17 GM/SCOOP mixed with Gatorade or Crystal Light Orally begin at 5:00 p.m. the day before the procedure; Duration: 1 day 10/27/2023 Active Losartan Potassium 25 MG TAKE 1 TABLET B Y MOUTH EVERY DAY Oral; Duration: 90 Active Problems Problem Type SNOMED Code ICD Code Onset Dates Problem Status W/U Status Risk Notes Problem Colon cancer screening (181907817) Colon cancer screening (Z12.11) Active confirmed Problem Family history of malignant neoplasm of gastrointestinal tract (008272712) FH: colon cancer (Z80.0) Active confirmed Plan Of Treatment Future Test Test Name Order Date COLONOSCOPY 06/23/2012 COLONOSCOPY 10/27/2023 Insurance Providers Payer Name Payer Address Payer Phone Subscriber Number Group Number Insured Name Patient Relationship to Insured Coverage Start Date Coverage End Date [place]ARE OF [place] [address] [place] [id number] KARENA TRUONG Self - patient is the insured MEDEX ATTN CLAIMS [address] [place] [phone] [id number] KARENA TRUONG Self - patient is the insured Medical (General) History Medical History History ICD Code Hypertension Hyperlipidemia Colonoscopy 08/07, hyperplastic polyp, o ther nonspecific findings Surgical History Surgery Date(Month/Year) tubal ligation frozen shoulder left manipulation
== END 2025-07-31 12:43 | disposition home or self-care (01) ==
LOC: HO.MAMMO 12:42
PROVIDERS: PCP Physician Assistant Medical; Visit Provider Physician Assistant Medical
DX: Z12.31 Encounter for screening mammogram for malignant neoplasm of breast (principal)
CPT/HCPCS: 77063; 77067

== ENCOUNTER → 2025-07-31 12:45 | Outpatient (BNV) | payer MEDICARE, SELFPAY | PROVIDERS: PCP Physician Assistant Medical; Visit Provider Internal Medicine | DX: Z12.31 Encounter for screening mammogram for malignant neoplasm of breast (principal) | CPT/HCPCS: 77063; 77067 ==